=== PATIENT | female | born 1970 | race Caucasian/White ===

== ENCOUNTER → 2022-10-07 10:44 | Outpatient (CLI) | payer BC, SELFPAY ==
--- NOTE | 2022-10-07 10:53 | XR_ITS ---
FINAL REPORT CLINICAL HISTORY: major deformities and foot pain FINDINGS: Left foot Three views were obtained. There is no acute fracture or dislocation. There is marked Bonita deformity. There is lateral subluxation/dislocation of the 2nd and 3rd metatarsophalangeal joints. There is pes planus deformity. IMPRESSION: No acute process. Reviewed, Interpreted and Dictated by Akhil Huang MD Transcribed by Laureen Hobbs Authenticated and [facility]
--- NOTE | 2022-10-07 10:53 | XR_ITS ---
FINAL REPORT CLINICAL HISTORY: ankle pain FINDINGS: Left ankle Three views were obtained. There is no acute fracture or dislocation. The joint spaces appear normal. No soft tissue abnormality is identified. There is a small plantar spur. IMPRESSION: No acute process. Reviewed, Interpreted and Dictated by Akhil Huang MD Transcribed by Laureen Hobbs Authenticated and [facility]
--- NOTE | 2022-10-07 10:53 | XR_ITS ---
FINAL REPORT CLINICAL HISTORY: bilateral foot pain FINDINGS: Right foot Three views were obtained. There is no acute fracture or dislocation. The joint spaces appear normal. No soft tissue abnormality is identified. There is marked hallux valgus deformity. There is an accessory navicular. IMPRESSION: No acute process. Reviewed, Interpreted and Dictated by Akhil Huang MD Transcribed by Laureen Hobbs Authenticated and [facility]
--- NOTE | 2022-10-07 10:53 | XR_ITS ---
FINAL REPORT CLINICAL HISTORY: ankle pain FINDINGS: Right ankle Three views were obtained. There is no acute fracture or dislocation. The joint spaces appear normal. No soft tissue abnormality is identified. IMPRESSION: No acute process. Reviewed, Interpreted and Dictated by Akhil Huang MD Transcribed by Laureen Hobbs Authenticated and . [facility]
== END ==
PROVIDERS: PCP Nurse Practitioner Family; Visit Provider Nurse Practitioner Family
DX: M79.671 Pain in right foot (principal); M79.672 Pain in left foot; M25.571 Pain in right ankle and joints of right foot; M25.572 Pain in left ankle and joints of left foot
CPT/HCPCS: 73610; 73630

== ENCOUNTER 2023-04-03 09:20 | Outpatient (CLI) | payer BC, SELFPAY ==
--- NOTE | 2023-04-03 09:22 | US_ITS ---
FINAL REPORT CLINICAL HISTORY: Decreased Pedal Pulses COMPARISON: None FINDINGS: ANKLE-BRACHIAL PRESSURE INDICES Pressure indices are as follows: RIGHT LOWER EXTREMITY: Ankle-brachial pressure index: 1.0 Comments: Normal LEFT LOWER EXTREMITY: Ankle-brachial pressure index: 1.0 Comments: Normal IMPRESSION: No evidence of significant obstructive peripheral vascular disease of the lower extremities Reviewed, Interpreted and Dictated by Pee Lopez III, MD Transcribed by Marlene Wilhelm Authenticated and [facility]
== END 2023-04-03 23:59 ==
LOC: RT 09:22
PROVIDERS: PCP Nurse Practitioner Family; Visit Provider Podiatrist
DX: R09.89 Other specified symptoms and signs involving the circulatory and respiratory systems (principal)
CPT/HCPCS: 93923

== ENCOUNTER 2023-05-06 09:33 | Outpatient (CLI) | payer BC, SELFPAY ==
--- NOTE | 2023-05-06 09:33 | CT_ITS ---
FINAL REPORT TECHNIQUE: Thin section axial CT images with coronal and sagittal reformats were performed of the left foot. This study was performed with techniques to keep radiation doses as low as reasonably achievable (ALARA). Individualized dose reduction techniques using automated exposure control or adjustment of mA and/or kV according to the patient''s size were employed. CLINICAL HISTORY: Bunion and subchondral bone cysts COMPARISON: None FINDINGS: There are no fractures. There is a severe hallux valgus deformity. There is lateral dislocation of the second and third proximal phalanges at the metatarsophalangeal joints. There are second, third, and fourth hammertoes. There is moderate degenerative change of the midfoot, worst at the second tarsometatarsal joint with numerous subchondral cysts. IMPRESSION: Severe hallux valgus deformity. Lateral dislocation of the second and third proximal phalanges. Second, third, and fourth hammertoes. Moderate degenerative change of the midfoot. Reviewed, Interpreted and Dictated by Pee Lopez III, MD Transcribed by Marlene Wilhelm Authenticated and [facility]
== END 2023-05-06 23:59 ==
LOC: RAD 09:33
PROVIDERS: PCP Nurse Practitioner Family; Visit Provider Podiatrist
DX: M85.89 Other specified disorders of bone density and structure, multiple sites (principal); M85.672 Other cyst of bone, left ankle and foot
CPT/HCPCS: 73700

== ENCOUNTER 2023-06-03 09:27 | Outpatient (CLI) | payer BC, SELFPAY ==
--- NOTE | 2023-06-03 09:28 | XR_ITS ---
FINAL REPORT CLINICAL HISTORY: Bone Density Disorder COMPARISON: None FINDINGS: Using L1-4, the bone mineral density of the spine is 1.206 g/cm2, corresponding to T-score of 1.4 which is within normal limits. Using the left hip, the bone mineral density of the femoral neck is 0.882 g/cm2, corresponding to a T-score of 0.3 which is within normal limits. Using the right hip, the bone mineral density of the femoral neck is 0.868 g/cm2, corresponding to a T-score of 0.2 which is within normal limits. FRAX not reported because all T-scores at or above -1.0. NOTE: T-score: Standard deviation compared with peak bone mass of young adult mean. *Following the recommendations of the International Society of Bone densitometry, classification of hip BMD is based on the lower of two T-scores; total hip or femoral neck. IMPRESSION: Normal bone mineral density of the lumbar spine and hips. Reviewed, Interpreted and Dictated by Akhil Huang MD Transcribed by Marlene Wilhelm Authenticated and . [facility]
== END 2023-06-03 23:59 | disposition home or self-care (01) ==
LOC: RAD 09:28
PROVIDERS: PCP Nurse Practitioner Family; Visit Provider Podiatrist
DX: M85.89 Other specified disorders of bone density and structure, multiple sites (principal)
CPT/HCPCS: 77080

== ENCOUNTER 2023-06-23 11:00 | Outpatient (CLI) | payer BC, SELFPAY ==
--- NOTE | 2023-06-23 11:10 | XR_ITS ---
FINAL REPORT CLINICAL HISTORY: past nicotine use COMPARISON: None FINDINGS: Two views of the chest were obtained. The heart size and pulmonary vascularity are within normal limits. The mediastinum is normal. There is mild atelectasis or scarring in the left lung base. There is no pneumothorax. The bony thorax is intact. IMPRESSION: Left lung base atelectasis or scarring. Reviewed, Interpreted and Dictated by Pee Lopez III, MD Transcribed by Marlene Wilhelm Authenticated and [facility]
[2023-06-23 11:16] LABS: Basophils # 0.1 K/mm3 (0-0.2); Basophils % 1.1 % (0.1-2.0); Eosinophils # 0.3 K/mm3 (0.0-0.4); Eosinophils % 3.2 % (0.1-12.0); Hematocrit 47.1 % (37.0-47.0); Hemoglobin 15.2 g/dL (12.2-16.2); Lymphocytes # 2.4 K/mm3 (0.7-4.5); Lymphocytes % 25.5 % (10-50); Mean Corpuscular HGB Conc 32.3 g/dL (31.8-35.4); Mean Corpuscular Hemoglobin 29.5 pg (27.0-31.2); Mean Corpuscular Volume 91.4 fl (81-99); Mean Platelet Volume 10.1 fl (7.4-10.4); Monocytes # 0.4 K/mm3 (0.1-1.0); Monocytes % 4.6 % (1.7-9.3); Neutrophils # 6.1 K/mm3 (1.8-7.8); Neutrophils % 65.6 % (37.0-80.0); Platelet Count 224 K/mm3 (142-424); Red Blood Count 5.15 M/mm3 (4.20-5.40); Red Cell Distribution Width 16.2 % (11.5-17.5); White Blood Count 9.4 K/mm3 (4.8-10.8)
[2023-06-23 11:37] LABS: Alanine Aminotransferase 27 U/L (12-78); Albumin Level 4.2 g/dl (3.5-5.0); Albumin/Globulin Ratio 1.6 (1.1-1.8); Alkaline Phosphatase 58 U/L (38-126); Aspartate Amino Transferase 31 U/L (14-36); Bilirubin,Total 0.8 mg/dl (0.2-1.3); Blood Urea Nitrogen 13 mg/dl (7-17); Calcium 9.7 mg/dl (8.4-10.2); Carbon Dioxide 29 mmol/L (22.0-30.0); Chloride 100 mmol/L (98-107); Estimated Glomerular Filt Rate 130 ml/min (>60); GFR (African American) 157 ML/MIN (>60); Globulin 2.7 g/dL (1.3-3.2); Glucose 101 mg/dl (74-100); Sodium 136 mmol/L (136-145); Total Protein,Serum 6.9 g/dl (6.3-8.2); Uric Acid 4.9 mg/dl (2.5-6.2)
--- NOTE | 2023-06-23 11:53 | ECG_ITS ---
APPROVED REPORT Exam: Resting ECG HR:77 bpm ECG Measurements Heart Rate 77 AXES AR 144 P 66 QRSd 86 QRS 70 QT 369 T 46 QTc 400 Conclusion SINUS RHYTHM LOW QRS VOLTAGE IN PRECORDIAL LEADS [QRS DEFLECTION < 1.0 mV IN CHEST LEADS] BORDERLINE ECG UNCONFIRMED REPORT Electronically signed by : Clayton Gonzales MD 06/23/2023 21:35:27
[2023-06-23 15:47] LABS: Erythrocyte Sedimentation Rate 12 mm/hr (0-30)
[2023-06-24 09:09] LABS: RA Latex Turbid. <10.0 IU/mL (<14.0)
[2023-06-25 15:54] LABS: Antinuclear Antibodies, IFA Positive
[2023-06-29 21:08] LABS: 1,25 Dihydroxy Vitamin D 43 pg/mL (.); 1,25-Dihydroxy, Vitamin D-2 <10 pg/mL (.); 1,25-Dihydroxy, Vitamin D-3 40 pg/mL (.)
== END 2023-06-23 23:59 | disposition home or self-care (01) ==
LOC: LAB 11:01
PROVIDERS: PCP Nurse Practitioner Family; Visit Provider Podiatrist
DX: Z01.818 Encounter for other preprocedural examination (principal); R60.9 Edema, unspecified
CPT/HCPCS: 36415; 71046; 80053; 82652; 84550; 85025; 85651; 86038; 86431; 93005

== ENCOUNTER 2023-07-15 07:14 | Day surgery (SDC) | payer BC, SELFPAY ==
[2023-07-09 09:45] VITALS: BMI 33.6
[2023-07-15] VITALS (11 sets, daily range): BP systolic 105–163; BP diastolic 63–96; PULSE 90–119; RESP 16–20; TEMP 36.2–43; O2SAT 92–96; BMI 33.6
[2023-07-15] MEDS: LACTATED RINGERS 1000ML 1,000 ML 100 ML IV (07:44)
--- NOTE | 2023-07-15 07:59 | EXP.ANES.CKL ---
[facility] Disclaimer: The information contained in this section may have been updated after the patient was seen, as this information can be updated by other users. Medical History Hypothyroid Bilateral ankle pain Bilateral foot pain Surgical History History of gastric bypass Family History Other Family history of arthritis Family history of cancer Social History Smoking Status: Never smoker alcohol intake: current substance use type: denies use current occupational status: employed Travel in the last 8 weeks: None [facility] Anesthesia Checklist Patient Identification Patient Identification: Arm Band Structural Data Admitted From: Home Planned Operative Procedure/s: Left Lapidus, Foot Reconstruction Consent for Planned Operative Procedure(s) Verified: Yes Verified Documents: Surgical Consent and History and Physical NPO Status Verified Time NPO: 00:00 Additional verifications Anesthesia Reactions: No Hx Blood Transfusions: No Blood Transfusion Reaction: No Airway Assessment Mallampati Score:: Class II C-Spine Mobility Assessed: Yes TMJ Mobility Assessed: Yes Dentition: Dentures-good fit (removed) Neurological Assessment Level of Consciousness: Awake, Alert and Appropriate Anesthesia Plan Anesthesia Risk discussed: Yes Anesthesia Plan: Verified ASA Class: II Anesthesia Type: General w/block (Left Popliteal/Adductor Canal Nerve Block. Risks/benefits explained. Pt verbalized understanding)
[2023-07-15 09:34] LABS: HCG Qualitative, Serum Negative (Negative)
[2023-07-15] MEDS: CEFAZOLIN SODIUM 2 GM in 0.9 % SODIUM CHLORIDE 100 ML IV (09:50)
--- NOTE | 2023-07-15 10:43 | SUR.OPER ---
attempted to update family member that the surgery had begun. family was not found in waiting area and did not answer the phone call made to update them
--- NOTE | 2023-07-15 11:30 | SUR.OPER ---
patients family member has been updated on status of surgery via phone call
--- NOTE | 2023-07-15 13:12 | SUR.OPER ---
1310- family updated at this time, family member was made aware that surgery is going as planned per
--- NOTE | 2023-07-15 14:00 | XR_ITS ---
PROCEDURE INFORMATION: Exam: XR Left Foot Exam date and time: 07/15/2023 4:45 PM Age: 52 years old Clinical indication: Device placement; Joint fixation hardware; Additional info: Post op forefoot recon TECHNIQUE: Imaging protocol: Radiologic exam of the left foot. Views: 3 or more views. COMPARISON: SD XR FOOT LT 2V 07/15/2023 4:09 PM and 10/07/2022 FINDINGS: Bones/joints: Fusion of the midfoot with plate and screw fixation involving the 1st through 3rd tarsometatarsal bony structures. Osteotomy with sideplate fixation of the midportion of the 1st metatarsal. Bunionectomy. Osteotomies of the distal 2nd through 5th metatarsals with K-wire fixation. Soft tissues: Normal. IMPRESSION: Postop left foot.
--- NOTE | 2023-07-15 14:14 | SUR.OPER ---
1415- family member updated at this time on progress of surgery per
--- NOTE | 2023-07-15 15:14 | SUR.OPER ---
updated at 1513. stated thanks for the update.
--- NOTE | 2023-07-15 16:09 | XR_ITS ---
FINAL REPORT CLINICAL HISTORY: LAPIDUS BUNIONECTOMY/HAMMERTOE REPAIR FT:4.45MIN 5.51mGy FINDINGS: FLUORO TIME PROCEDURE: Fluoroscopy in the operating room. FINDINGS: Fluoroscopy time was provided by the radiology department for the clinical service. 3 films were obtained. An overlying cast obscures some of the details. There is fusion hardware bridging the first, second, and third tarsometatarsal joints. K wires are seen in all 5 digital rays. Fluoroscopy exposure time: 4.45 minutes DAP: 5.51 mGy IMPRESSION: See operative report Reviewed, Interpreted and Dictated by Akhil Huang MD Transcribed by Omaira Lorenzo Authenticated and [facility][1]
--- NOTE | 2023-07-15 16:38 | P.PNANES_ITS ---
[facility] Anesthesia Record Part I Anesthesia Record I Intake, IV Amount: 1,800 Hydration: Adequate Estimated blood loss (mL): 200 Urine output (mL): 1,200 Blood Products used (#): none Blood Pressure: 142/80 SaO2: 92 Pulse Rate: 119 Airway Patency: Patent Respiratory Rate: 16 Temperature: 97.9 F Patient is:: Awake (Talking) and Stable Stable to PACU at:: 19:37
--- NOTE | 2023-07-15 16:47 | P.OP_ITS ---
Date of procedure: 07/15/23 Pre-op Diagnosis:: Left foot metatarsus adductus Left foot arthritis Left hallux valgus Pes planus Hammertoes 2-5 Cross over toe deformity, 2-3rd MPJ dislocation Angular toe deformity Metatarsalgia Left foot (ganglion) cyst Post-op Diagnosis:: Same + intercuneiform instability Procedure performed:: Left lapidus bunionectomy (78243) 2-3rd tarsometatarsal joint arthrodesis with osteotomy/flatfoot correction (9 3995) ORIF cuneiform 1st MTPJ arthrodesis (57366) Open treatment of MPJ dislocation (34249) 2-5th MPJ capsulotomy (77389) Autograft bone harvest () Hammertoe repair, digits 2-4 (56240) Reconstruction of angular toe deformity, digit 5 (69112) Partial (tucker) metatarsal head resection 2-5 (32326) Partial excision phalanx, digit 5 (55165) Z lengthening extensor tendon 1-3 Ganglion cyst excision Surgeon:: Sadia Nieto DPM [employer]:: Lila Ferro Anesthesia: GETA and regional (Left pop nerve block) Estimated blood loss (mL): 30 Clinical Note:: 52F who presents with painful b/l metatarsus adductus, bunion and hammertoe defo rmity. Patient has had recent x-rays, ABIs, CT, DEXA scan, and labs. She has failed conservative care: modification of shoe gear, modification of activity, RICE protocol, stretching, bunion sleeve/splint, toe spacers/sleeves/caps, pads, and NSAIDs. The patient has been instructed on the planned procedure, all risk versus benefits of the procedure to include bleeding, infection, nerve and blood vessel damage, need for further surgery, delay in healing of soft tissue or bone, failure of bones to heal, non-union, mal-union, prolonged pain and recovery, prolonged swelling, CRPS/RSD, DVT/PE and anesthetic complications including . Patient is a former smoker with no history of DVT/PE. Discussed aspirin 81 mg postop. Discussed increased risk of infection, wound dehiscence due to extent of surgery, multiple incisions and former smoker history. No guarantees were given. All questions fully answered. The patient verbalized understanding and consent obtained. Operative findings:: Significant left foot deformity. Left hallux valgus with hypermobile first ray. Arthritic degenerative changes with dorsal exostosis/spurring noted to the f irst second and third tarsometatarsal joints. There was no viable medial capsular tissue noted to the 1-3rd MPJ. The tissue was synovitic. Around the joint capsules the tissue appeared rubbery. The skin itself was very fragile and upon reduction of the deformity the skin was very easily bruised and torn. Crossover toe deformities. Windswept deformities to the digits 1 through 5, laterally. The second and third digits were dorsally and laterally dislocated at the level of the MPJ. The first metatarsal head had more than 60% arthritic damage to the joint. The second metatarsal head had over 80% cartilage damage. There were arthritic changes noted to the remaining metatarsal heads. Metatarsal heads were removed and a tucker metatarsal head fashion similar to a rheumatoid arthritis type case in order to relocate the digits. Due to the significant soft tissue contracture in order to relocate and maintain reduced position of the digits, extensor tendon lengthenings and the pattern met head resection had to be performed. No signs of infection. The bone quality was poor due to the arthritic changes and extensive subchondral bone cysts throughout the foot. Modifier: This case took 2.5 hours longer than normal due to the significant deformity. The metatarsus adductus, bunion, arthritic changes, toe dislocations added to the complexity of the case. The patient's soft tissue was synovitic and rubbery almost the consistency is like a autoimmune disease. This made the skin very fragile and easy to tear. Bruising with minimal tissue handling. So extra care was utilized in the soft tissue dissection and closure. There was redundant skin medially and tight skin laterally. Kirk guard was used at the areas of highest tension to help prevent wound dehiscence due to reduction of the significant deformity especially the second and third toes. If the arthritic degenerative changes in the subchondral bone cyst warranted bone grafting with both the calcaneal autograft and allograft to fill the cystic defects. Postop concern: Wound healing, wound dehiscence, skin necrosis and gangrene discussed with patient/. Operative note:: On this date and time, the patient was deemed an appropriate surgical candidate. With informed consent signed, the patient was taken to the operating theater after anesthesia did a regional nerve block. The patient was positioned supine. General anesthesia was induced. Tourniquet was applied to the mid calf. The left lower extremity was prepped and draped in normal sterile fashion. IV Ancef infused. Left calcaneal autograft bone harvest: Attention was directed to the lateral calcaneus where a an incision was mapped out. Dissection was carried down full- thickness to the level of the bone. Utilizing an autograft bone harvester drill was inserted into the calcaneus and drill. Approximately 10 cc of calcaneus cancellous bone was obtained. Wound was flushed with saline. Nylon used to close the skin. Left Lapidus bunionectomy: Tourniquet was inflated 225 mmHg. Attention directed to the dorsal medial foot where an incision was mapped out over the first metatarsal cuneiform joint. Dissection carried down full-thickness down to the level of the bone with care taken to maintain surgical hemostasis and preserve neurovascular structures. There was arthritic changes noted to the dorsal lateral aspect of the first tarsometatarsal (TMT) joint. First TMT release performed. Left multiple midfoot athrodesis, excision of ganglion cyst: Utilizing intraoperative fluoroscopy, separate incision was made over the third TMTJ. Care taken to ensure an adequate skin bridge of 4 cm between the dorsal medial and dorsal lateral incisions. A longitudinal incision was made over the 3rd TMT joint. Careful dissection through skin subcutaneous tissue and retinaculum, care taken to leave ligamentous attachment between the 2nd and 3rd metatarsals. The 2nd and 3rd TMT joints were located and exposed. A 1 cm round ganglion cyst was noted at the dorsal aspect of the second TMT. It was resected and sent to pathology as a specimen. Complete release of the interval between the 3rd and 4th metatarsals was performed with a TriToma triple Edge release instrument and osteotome. The Adductoplasty planer system was utilized and inserted into the joints. Utilizing a saw the joints were planed. Next the cut guide was inserted into the joints. Intraoperative fluoroscopy was used to confirm position of the cut guides. Sagittal saw used to make continuous metatarsal and cuneiform cuts across both the 2nd and 3rd TMT joints. The bone slices were removed. All articular cartilage had been removed. This was confirmed with intraoperative fluoroscopy. Due to the significant met adductus deformity, a 9 degree cut guide was then utilized to resect more bone off the metatarsal in order to reduce the deformity. Joints were flushed with saline. Next drill bit was used to fenestrate through the subchondral bone plates on both the joints. The autograft from the calcaneus was inserted to the fusion sites. TMT joints were manually reduced and a compressor was applied over the joints holding the reduction. Again reduction confirmed under intraoperative x-ray. Upon insertion of the temporary fixation, the third metatarsal bone fractured due to the degenerative changes and bone cysts. Bridge plate technique was then utilized to span the fracture third metatarsal medial base. A Lapiplasty lesser TMT fixation speed plate was then applied on the dorsal 3rd TMT joint. Allograft was packed into the fracture and joint sites. It was inserted and fixated in standard technique. Deformity further reduced and plate was then inserted on the 2nd TMT joint. Fluoroscopy used to check position of fixation and it was noted to be adequate with reduction of the deformity. Attention was then directed back to the first tarsometatarsal joint. Next a pin was inserted dorsal medial parallel to the first TMT joint and the bunion deformity was reduced. Next in standard technique the Lapiplasty 3in1 guide and positioner was inserted into the TMT joint. Intraoperative fluoroscopy was utilized to confirm position. The positioner was tightened and the deformity was reduced. The sesamoids were realigned underneath the first metatarsal head. At this point temporary fixation was inserted. Cut guide applied and bone cuts were made. A rongeur was used to resect excess dorsal spur. Next the incision was flushed with copious amounts of normal sterile saline. The joint was then distracted and the joint surfaces were fenestrated with a 2 mm drill fenestrating subchondral bone surfaces. The joint was then compressed and provisional fixation was inserted. The autograft from the calcaneus was inserted to the fusion site. Quad speed plates then applied in standard technique. AP and lateral fluoroscopy views used to confirm position of the fixation. Some reduction of the deformity was noted with stable fixation. A splay test was performed and there was some instability noted at the level of the intercuneiform's. Left ORIF cuneiform: Due to instability at the level of the cuneiforms the m edial and medial cuneiforms were reduced and a cannulated screw was inserted in standard technique from medial to lateral across the joints. Intraoperative fluoroscopy was used to check position and there was some reduction of the instability at this level. Wound flushed. Left 1st MTPJ arthrodesis: New incision was made over the 1st MPJ extending to the proximal phalanx. Full-thickness dissection. There was significant contracture of the extensor tendons so a Z-lengthening was performed. Due to the significant bunion deformity with degenerative changes of the metatarsal head, decision was made to perform the first MPJ fusion. Joint was prepared with reamers in standard technique removing all damaged cartilage. Deformity was reduced and confirmed under intraoperative fluoroscopy. Next 2 dual Spee plates were inserted in standard technique without complication. The K wire used to reduce the joint was retained for extra stability. All fixation was deemed to be stable without joint impingement. Wound flushed. Deep and subcutaneous tissue closed with Vicryl. Skin was reapproximated with nylon. Left tucker met head resection, MPJ capsulotomy: Due to the significant deformity of the toes, toes were unable to be fully relocated without them dislocating again. Incision was made between the second and third and a separate incision between the fourth and fifth metatarsal heads. Full-thickness dissection. Extensor tendon lengthening was performed. MPJ capsule releases performed 2-5. Saw blade used to resect metatarsal heads without complication. Met head sent for pathology specimen. No signs of infection. The digits were then able to be reduced at the level of the MPJ. Hammertoe repair 2-5, correction of crossover second toe, correction of angular toe deformity: Linear incisions were made over the 2-4th PIPJ's. A wedge incision was made of the fifth PIPJ in order to derotate the fifth toe deformity. Dissection carried down to the level of the extensor tendons which were transected at the level of the PIPJ. Head of the proximal phalanx 2-5 were resected. Base of the middle phalanx 2-4 resected. Wound flushed with saline. Toe deformities were reduced. A peek hammertoe implant size small was inserted to the second digit, K wire left intact. The remaining toe bones were irregular with soft cystic changes. Due to the size of the bone implant would not fit, so decision made to use smooth K wires on remaining digits 3-5. Wounds were flushed. Vicryl was used to reapproximate deep and subcutaneous tissue. Graft inserted prior to skin closure. Due to excessive tension on the lateral skin, Kirk guard was used to reduce chance of wound dehiscence. Application of amniotic graft: Given the patient's comorbidities and risk for wound and skin healing complications secondary to reduction of deformity, decision was made to use amniotic tissue in the incisions. It was inserted without complication. Application of posterior splint: Tourniquet had been deflated at 120 minutes and immediate hyperemic response was noted to the digits. It was left down for over 60 minutes and then reinflated for another 2 hours. Immediate hyperemic response was noted once the tourniquet was deflated. Skin was cleansed. Xeroform applied to the incisions and around the K wires. A dry sterile dressing was then applied along with a below-knee posterior splint. Patient was awoken from anesthesia and transferred to recovery with vital signs stable. Patient appeared to tolerate procedure and anesthesia well without complication. Materials: Treace Quad Speed plate x2, Dual Speed plate x2, SK14 4 hole plate x2, 2.7mm locking x8, 3.5mm cannulated screw x1, small 2.8mm HT peek implant x1 0.062 K wire x1, 1.1mm K wires x2, 0.045 smooth K wire x2, [place] 4x3cm amniotic graft, [employer] 10cc, Kirk guard (suturegard) x2 Plan: Maintain dressing clean dry and intact to left foot. NWB to LLE in splint with DME. Has knee scooter. Take prescriptions as directed. Polar pack behind the knee. Postop x-rays. Follow-up outpt in 1 week. Tourniquet time (min): 240 Condition: stable Disposition: same day Specimens:: Left foot cyst Left metatarsal heads 2-5 Complications:: None
--- NOTE | 2023-07-15 17:00 | PC.NURSE ---
Dr. Nieto at bedside speaking with pt and reinforcing discharge instructions including non wt bearing, leaving dressing c/d/i, and polar pack. Also instructed on use of pain med. Pt verbalized understanding to all.
--- NOTE | 2023-07-15 17:02 | PC.NURSE ---
Pt unable to move L foot. No feeling. Nerve block is functioning very well. Denies any pain
--- NOTE | 2023-07-15 17:35 | SUR.PHASEII ---
Pt very pleased with surgery and very complimentary of all staff and how the day went. pt having no pain, no feeling in L foot D/T nerve block.
[2023-07-16 06:51] LABS: Microscopic,Cath URINE MICROSCOPIC (MICROSCOPIC)
[2023-07-16 07:02] LABS: Appearance,Urine/Cath CLEAR (Clear); Bilirubin,Cath Negative (Negative); Blood, Urine/Cath Negative (Negative); Glucose,Urine/Cath (UA) Negative (Negative); Ketones,Urine/Cath Negative (Negative); Leukocyte Esterase,Cath Negative (Negative); Nitrate,Cath Negative (Negative); Protein,Urine/Cath Negative (Negative); Specific Gravity, Urine/Cath <= 1.005 (1.005-1.030); Urobilinogen,Cath 0.2 EU/dl (0.2)
[2023-07-16 07:04] LABS: Color,Urine/Cath Straw (Yellow)
[2023-07-16 09:01] LABS: Bacteria,Urine/Cath TRACE /lpf; WBC,Urine/Cath Occasional #/hpf (0-3)
--- NOTE | 2023-07-16 09:16 | EXP.ANES.II ---
[facility] Anesthesia Record Part II Anesthesia Record Part II Discharge Time: 17:02 Destination: Surgical Day Care (OP Surgery) PACU nurse assessment reviewed?: Yes Patient Condition:: Good Anesthesia Complications:: None Swallowing reflex intact?: Yes Airway Patency: Patent Cyanosis?: No Blood Pressure: 115/63 SaO2: 95 Respiratory Rate: 18 Pulse Rate: 109 Temperature: 98.5 F Mental Status: Alert & Oriented Pain level:: 0 Nausea and/or vomitting:: None Intake, IV Amount: 1,800 Hydration: Adequate
[2023-07-16 09:18] VITALS: BP 115/63; PULSE 109; RESP 18; TEMP 36.9; O2SAT 95
== END 2023-07-15 17:40 | disposition home or self-care (01) ==
PROVIDERS: PCP Nurse Practitioner Family; Visit Provider Podiatrist
PROC: (CPT 28297; principal; 2023-07-15 09:00)
DX: M20.12 Hallux valgus (acquired), left foot (principal); M20.5X2 Other deformities of toe(s) (acquired), left foot; M21.42 Flat foot [pes planus] (acquired), left foot; M20.42 Other hammer toe(s) (acquired), left foot; M77.42 Metatarsalgia, left foot; M79.672 Pain in left foot; M24.478 Recurrent dislocation, left toe(s); Z79.85 Long-term (current) use of injectable non-insulin antidiabetic drugs; Z79.899 Other long term (current) drug therapy
CPT/HCPCS: 28297; 28735; 20900; 28285 ×4; 28645; 73620; 73630; 76000; 81001; 84703; 96374; C1713; C1776; J0690; J2405; J7120; Q4211

== ENCOUNTER 2023-07-30 16:09 | Outpatient (CLI) | payer BC, SELFPAY | END 2023-07-30 23:59 | disposition home or self-care (01) | LOC: LAB.DROPOF 16:09 | PROVIDERS: PCP Podiatrist; Visit Provider Podiatrist | DX: S90.426A Blister (nonthermal), unspecified lesser toe(s), initial encounter (principal); S90.425A Blister (nonthermal), left lesser toe(s), initial encounter; A49.9 Bacterial infection, unspecified | CPT/HCPCS: 87070; 87077; 87205 ==

== ENCOUNTER 2023-08-24 08:26 | Outpatient (CLI) | payer BC, SELFPAY ==
--- NOTE | 2023-08-24 08:33 | XR_ITS ---
FINAL REPORT CLINICAL HISTORY: Poetoperative healing COMPARISON: 07/15/2023 FINDINGS: LEFT FOOT Three views of the left foot demonstrate postoperative changes of the first, second, and third tarsometatarsal joints with multiple screw plates and screws. There is fusion of the first metatarsal phalangeal joint and resection of the heads of the second through fifth metatarsals. Wires are noted in the first through fifth digits. The bony alignment is stable. A plantar calcaneal spur is noted. The soft tissues are unremarkable. IMPRESSION: Postoperative changes as above. Reviewed, Interpreted and Dictated by Pee Lopez III, MD Transcribed by Marlene Wilhelm Authenticated and [facility]
--- NOTE | 2023-08-24 09:40 | ECG_ITS ---
APPROVED REPORT Exam: Resting ECG HR:73 bpm ECG Measurements Heart Rate 73 AXES DC 152 P 61 QRSd 88 QRS 60 QT 377 T 44 QTc 403 Conclusion SINUS RHYTHM LOW QRS VOLTAGE IN PRECORDIAL LEADS [QRS DEFLECTION < 1.0 mV IN CHEST LEADS] BORDERLINE ECG UNCONFIRMED REPORT Electronically signed by : Clayton Gonzales MD 08/26/2023 08:34:04
[2023-08-24 10:01] LABS: Basophils # 0.1 K/mm3 (0-0.2); Basophils % 1.2 % (0.1-2.0); Eosinophils # 0.4 K/mm3 (0.0-0.4); Eosinophils % 5.6 % (0.1-12.0); Hematocrit 44.3 % (37.0-47.0); Hemoglobin 14.6 g/dL (12.2-16.2); Lymphocytes # 2.1 K/mm3 (0.7-4.5); Lymphocytes % 27.4 % (10-50); Mean Corpuscular Hemoglobin 29.5 pg (27.0-31.2); Mean Corpuscular Volume 89.3 fl (81-99); Mean Platelet Volume 10.8 fl (7.4-10.4); Monocytes # 0.4 K/mm3 (0.1-1.0); Monocytes % 4.6 % (1.7-9.3); Neutrophils # 4.8 K/mm3 (1.8-7.8); Neutrophils % 61.1 % (37.0-80.0); Platelet Count 204 K/mm3 (142-424); Red Blood Count 4.96 M/mm3 (4.20-5.40); Red Cell Distribution Width 14.9 % (11.5-17.5); White Blood Count 7.8 K/mm3 (4.8-10.8)
[2023-08-24 10:55] LABS: Alanine Aminotransferase 18 U/L (12-78); Albumin Level 4.1 g/dl (3.5-5.0); Albumin/Globulin Ratio 1.5 (1.1-1.8); Alkaline Phosphatase 75 U/L (38-126); Anion Gap 7.8 mEq/L (5-15); Aspartate Amino Transferase 22 U/L (14-36); Bilirubin,Total 0.7 mg/dl (0.2-1.3); Blood Urea Nitrogen 14 mg/dl (7-17); Calcium 9.7 mg/dl (8.4-10.2); Carbon Dioxide 30 mmol/L (22.0-30.0); Chloride 104 mmol/L (98-107); Estimated Glomerular Filt Rate 130 ml/min (>60); GFR (African American) 157 ML/MIN (>60); Globulin 2.8 g/dL (1.3-3.2); Glucose 106 mg/dl (74-100); Potassium 3.8 mmoL/L (3.5-5.1); Sodium 138 mmol/L (136-145); Total Protein,Serum 6.9 g/dl (6.3-8.2)
[2023-08-24 13:10] LABS: Erythrocyte Sedimentation Rate 62 mm/hr (0-30)
[2023-08-24 14:10] LABS: Hemoglobin A1C 5.9 % (4.0-6.0)
[2023-08-30 20:08] LABS: 1,25 Dihydroxy Vitamin D 20 pg/mL (.); 1,25-Dihydroxy, Vitamin D-2 12 pg/mL (.); 1,25-Dihydroxy, Vitamin D-3 <10 pg/mL (.)
== END 2023-08-24 23:59 | disposition home or self-care (01) ==
PROVIDERS: PCP Nurse Practitioner Family; Visit Provider Podiatrist
DX: Z01.818 Encounter for other preprocedural examination (principal); M79.672 Pain in left foot; R60.9 Edema, unspecified; T81.31XA Disruption of external operation (surgical) wound, not elsewhere classified, initial encounter; I96 Gangrene, not elsewhere classified; E66.9 Obesity, unspecified; Z68.33 Body mass index [BMI] 33.0-33.9, adult
CPT/HCPCS: 36415; 73630; 80053; 82652; 83036; 85025; 85651; 86140; 93005

== ENCOUNTER 2023-08-27 10:23 | Day surgery (SDC) | payer BC, SELFPAY ==
[2023-08-25 14:12] VITALS: BMI 34.4
[2023-08-27] VITALS (9 sets, daily range): BP systolic 116–142; BP diastolic 75–104; PULSE 79–91; RESP 12–20; TEMP 36.4–36.5; O2SAT 90–98; BMI 34.4
[2023-08-27] MEDS: LACTATED RINGERS 1000ML 1,000 ML 25 ML IV (11:10)
[2023-08-27 11:16] LABS: HCG Qualitative, Serum Negative (Negative)
--- NOTE | 2023-08-27 11:29 | P.PNANES_ITS ---
[facility] Disclaimer: The information contained in this section may have been updated after the patient was seen, as this information can be updated by other users. Medical History Hypothyroid Bilateral ankle pain Bilateral foot pain Surgical History History of gastric bypass Family History Other Family history of arthritis Family history of cancer Social History Smoking Status: Never smoker alcohol intake: current substance use type: denies use current occupational status: employed Travel in the last 8 weeks: None [facility] Anesthesia Checklist Patient Identification Patient Identification: Arm Band and Family Structural Data Admitted From: Home Planned Operative Procedure/s: Left second toe amputation. Wound debridement with delayed primary closure Consent for Planned Operative Procedure(s) Verified: Yes Verified Documents: Surgical Consent NPO Status Verified Time NPO: 00:00 Additional verifications Patient : No Anesthesia Reactions: No Hx Blood Transfusions: No Blood Transfusion Reaction: No Cephalosporin Allergy: No Previous Colonoscopy: Yes Airway Assessment Mallampati Score:: Class II C-Spine Mobility Assessed: Yes TMJ Mobility Assessed: Yes Dentition: Edentulous Neurological Assessment Level of Consciousness: Awake, Alert, Appropriate and Follows Commands Hx Seizures: No Numbness or tingling in extremities: No Anesthesia Plan Anesthesia Risk discussed: Yes ASA Class: II Anesthesia Type: General w/block
--- NOTE | 2023-08-27 11:42 | P.PNANES_ITS ---
[facility] Disclaimer: The information contained in this section may have been updated after the patient was seen, as this information can be updated by other users. Medical History Hypothyroid Bilateral ankle pain Bilateral foot pain Surgical History History of gastric bypass Family History Other Family history of arthritis Family history of cancer Social History Smoking Status: Never smoker alcohol intake: current substance use type: denies use current occupational status: employed Travel in the last 8 weeks: None [facility] Anesthesia Checklist Patient Identification Patient Identification: Arm Band and Family Structural Data Admitted From: Home Planned Operative Procedure/s: Second Toe Amputation wound debriedment with primary closure. Consent for Planned Operative Procedure(s) Verified: Yes Verified Documents: Surgical Consent and History and Physical NPO Status Verified Time NPO: 00:00 Additional verifications Patient : No Anesthesia Reactions: No Hx Blood Transfusions: No Blood Transfusion Reaction: No Cephalosporin Allergy: No Previous Colonoscopy: No Airway Assessment Mallampati Score:: Class II C-Spine Mobility Assessed: Yes TMJ Mobility Assessed: Yes Dentition: Edentulous Neurological Assessment Level of Consciousness: Awake, Alert, Appropriate and Follows Commands Hx Seizures: No Numbness or tingling in extremities: No Anesthesia Plan Anesthesia Risk discussed: Yes ASA Class: II Anesthesia Type: General
[2023-08-27] MEDS: VANCOMYCIN HCL 1,000 MG in 0.9 % SODIUM CHLORIDE 250 ML 125 MG IV (12:45)
--- NOTE | 2023-08-27 12:49 | XR_ITS ---
FINAL REPORT CLINICAL HISTORY: Post op 2nd toe amp COMPARISON: 08/24/2023 FINDINGS: Left foot Three views were obtained. Postoperative changes are again identified of the forefoot with screw plates and multiple screws. The wires have been removed from the 1st to 5th digits. There has been interval resection of the 2nd digit. There is pes planus deformity. IMPRESSION: Postsurgical changes as above. Reviewed, Interpreted and Dictated by Pee Lopez III, MD Transcribed by Laureen Hobbs Authenticated and . [facility]
[2023-08-27] MEDS: BUPIVACAINE 0.5% 10ML VIAL 50 MG ×2 (13:07)
[2023-08-27] MEDS: GENTAMICIN 80 MG/2 ML VIAL (13:07)
[2023-08-27] MEDS: SODIUM CHLORIDE IRRIG SOLUTION 3,000 ML 25 ML IR (13:07)
--- NOTE | 2023-08-27 14:29 | P.OP_ITS ---
Date of procedure: 08/27/23 Pre-op Diagnosis:: Left 2nd toe gangrene Left foot wound dehiscence Left foot open wound Retained K wires Post-op Diagnosis:: Same Procedure performed:: Left 2nd toe amputation Left foot hardware removal (2nd toe implant, K wires x5) Wound debridement x3 Adjacent soft tissue rearrangement/derotational skin flap Delayed primary closure Surgeon:: Sadia Nieto DPM [employer] TECHNICIAN:: Francis Mcknight Anesthesia: GETA and local (20cc 0.5% marcaine plain) Estimated blood loss (mL): 20 Clinical Note:: Patient is a 52 female who underwent left foot reconstruction 07/15/2023. Patient subsequently developed a gangrenous left distal second toe with wound dehiscence. Conservative care has included weekly office visits with debridement, Nitro-Bid to the left second toe, nitro patches, oral antibiotics. Infection has resolved. Discussed the distal toe gangrene is secondary to correction of deformity and overstretching the small blood vessels to the digits. We discussed conservative versus surgical treatment options. Conservative treatment options include local wound care, oral and IV antibiotics, change in shoe wear, taping/padding, and off-loading. We discussed surgical intervention for amputation of the left second toe. Patient understands that there is a chance that the toes can migrate to fill the gap or the foot may change shape after surgery. Patient also understands that they could have wound healing complications including delayed healing and infection. We discussed that if the wound does not heal, it is possible that they may need a more proximal amputation and could result in further loss of digits, loss of partial foot or l oss of leg. We discussed the risks and benefits in great detail. Other surgical risks include: prolonged pain and swelling, further infection requiring oral or IV antibiotics, delay in healing of soft tissue or bone, nerve or blood vessel damage, CRPS/RSD, DVT/PE, anesthesia complications, and even . All questions answered. Patient verbalized understanding. Consent obtained. Operative findings:: Left 2nd toe gangrene stable. Some bleeding noted at 2nd PIPJ with wound dehiscence extending to 2nd and 3rd MTPJ. Left second toe amputated at the level of the PIPJ. The hardware used for PIPJ fusion was exposed. There was not enough soft tissue to cover the remaining wound where the gangrene had been amputated distally. Due to this the decision was made to take the remaining proximal phalanx including the implant. Second toe and implant were sent as specimens. Several scabs with intact eschar and wounds noted to the left dorsal medial foot incision and dorsal lateral midfoot incision. All wounds were sharply debrided full thickness thru skin into subq. Fibrotic scar tissue noted from prior incisions. No new drainage or SOI noted. Post debridement: Left proximal 3rd toe-MTPJ: 100% granular, 1.3 x 0.4 x 0.2cm. Left dorsal medial incision: 100% granular, 2.5 x 0.6 x 0.2m. Left dorsal lateral midfoot: 100% granular, 1.7 x 0.6 x 0.2cm. The left dorsal medial and dorsal lateral wounds were then able to be reapproximated and delayed primary closure was performed. The third MTPJ wound was unable to be reapproximated so a derotational skin flap was performed using some of the tissue from the amputation that was performed on the second toe rotating the skin plantar medial to dorsal lateral in order to cover the third toe wound. Some bleeding noted. No open wounds remaining. No deep signs of infection noted. Modifier: this case took 30 mins longer than normal due to previous surgery, fibrotic scar tissue and wound defects necessitating an adjacent soft tissue rearrangement/derotational skin flap. Operative note:: On this date and time patient was deemed an appropriate surgical candidate. With informed consent signed, the patient was taken to the local procedure operating theater room. The patient was positioned supine. General anesthesia was induced. Left mid calf tourniquet used. Pre-op left foot block given with 10 cc 0.5% marcaine plain. 1g IV Vanco infused. Left lower extremity was prepped and draped in normal sterile fashion. K wire removal: K wires noted to the tips of all the digits were removed without complication. Foot was reprepped. Left 2nd toe amputation: A racquetball style incision was mapped out around the PIPJ. Utilizing a 15 blade dissection was carried down sharply to the level of the bone around the middle phalanx which was disarticulated from the proximal phalanx. Due to the prior procedure of PIPJ fusion with peek implant, the joint was amputated at the level of the fusion site. Bone and implant sent as specimen. There is not enough soft tissue to close over the remaining bone so the rest of the proximal phalanx was also resected. Portion of it amputated toe bone was sent for bone culture and the other part was sent for bone biopsy for pathology. Attention was then directed to the second metatarsal head. The head was hard and intact, with no obvious discoloration or cortical erosions noted. Next gentamicin irrigation was used to flush the wound. The wound was reexplored and no further signs of infection noted. Bleeding controlled. Left wound debridement x3: Tourniquet inflated at 225mmHg. Wounds were sharply surgically debrided full-thickness through skin into subcutaneous tissue. See operative findings for measurements. The skin edges were debrided with 15' blade, some bleeding noted. Left foot delayed primary closure: Post debridement, there was some bleeding was noted. Granular base was noted. No purulence or signs of infection noted. The left dorsal medial and dorsal lateral incisions were able to be reapproximated. Nylon was used to close skin in an interrupted simple suture fashion. Suture guard was applied over the highest area of tension on both the medial and lateral incision. After delayed primary closure, there was no open wound. Adjacent soft tissue rearrangement/derotational skin flap: After the third MPJ wound had been sharp excisionally debrided as above, there was not enough skin to close that wound. The skin from the prior amputation site was utilized in a derotational skin flap in order to cover the third MTPJ wound. The skin from the second toe was rotated plantar medial to dorsal lateral covering the open wound. Nylon was used to close skin in an interrupted simple suture fashion. No open wound remaining after skin flap. 10cc 0.5% marcaine plain given at end of case. The wounds were cleansed. Xeroform, Betadine soaked gauze, dry sterile dressing was then applied to the foot. The patient was awoken from anesthesia and transferred to recovery with vital signs stable and neurovascular status intact. The patient tolerated the procedure and anesthesia well, without complications. Materials: Kirk guard (suture guard) x2 Discharge/Plan: Ok to discharge home when ready and vss. Patient is to maintain dressing clean dry and intact. Elevate on two pillows. Hold ice to toes. DOS: IV Vanco 1g and oral Doxy x10d post-op. Non weight bearing to the left lower extremity with DME assistance. Follow up outpatient in one week as scheduled. Tourniquet time (min): 28 Condition: stable Disposition: same day Specimens:: Left 2nd toe gross path Left 2nd toe bone path Left 2nd toe bone culture Complications:: None
--- NOTE | 2023-08-27 14:36 | P.PNANES_ITS ---
[facility] Anesthesia Record Part I Anesthesia Record I Intake, IV Amount: 350 Hydration: Adequate Estimated blood loss (mL): 29 Urine output (mL): 0 Blood Products used (#): none Blood Pressure: 129/104 SaO2: 98 Pulse Rate: 90 Airway Patency: Patent Respiratory Rate: 12 Temperature: 97.7 F Patient is:: Drowsy and Stable Stable to PACU at:: 14:27
--- NOTE | 2023-08-28 11:22 | EXP.ANES.II ---
[facility] Anesthesia Record Part II Anesthesia Record Part II Discharge Time: 14:57 Destination: Surgical Day Care (OP Surgery) PACU nurse assessment reviewed?: Yes Patient Condition:: Good Anesthesia Complications:: None Swallowing reflex intact?: Yes Airway Patency: Patent Cyanosis?: No Blood Pressure: 137/91 SaO2: 90 Respiratory Rate: 18 Pulse Rate: 82 Temperature: 97.6 F Mental Status: Alert & Oriented Pain level:: 3 Nausea and/or vomitting:: None Intake, IV Amount: 0 Hydration: Adequate
[2023-08-28 11:23] VITALS: BP 137/91; PULSE 82; RESP 18; TEMP 36.4; O2SAT 90
== END 2023-08-27 15:28 | disposition home or self-care (01) ==
PROVIDERS: PCP Nurse Practitioner Family; Visit Provider Podiatrist
PROC: (CPT 28820; principal; 2023-08-27 12:45)
DX: M86.172 Other acute osteomyelitis, left ankle and foot (principal); M87.878 Other osteonecrosis, left toe(s); T81.31XA Disruption of external operation (surgical) wound, not elsewhere classified, initial encounter; Z79.899 Other long term (current) drug therapy; Z79.85 Long-term (current) use of injectable non-insulin antidiabetic drugs; E03.9 Hypothyroidism, unspecified; A05.4 Foodborne Bacillus cereus intoxication
CPT/HCPCS: 28820; 11042; 20670; 73630; 84703; 87077; 87186; 88304; 96374; J1100; J1580; J2250; J2405; J2704; J3010; J3370; J7120

== ENCOUNTER 2023-10-08 11:39 | Outpatient (CLI) | payer BC, SELFPAY ==
--- NOTE | 2023-10-08 11:42 | XR_ITS ---
FINAL REPORT CLINICAL HISTORY: Foot pain COMPARISON: 08/27/2023 FINDINGS: Left foot Three views were obtained. There are 2 sideplate and screws securing the 1st metatarsophalangeal joint. There are screw plates and screws securing the 1st, 2nd, and 3rd tarsometatarsal joints. There has been resection of the 2nd digit. IMPRESSION: Postsurgical changes as detailed above. Reviewed, Interpreted and Dictated by Akhil Huang MD Transcribed by Laureen Hobbs Authenticated and [facility]
== END 2023-10-08 23:59 | disposition home or self-care (01) ==
LOC: RAD 11:40
PROVIDERS: PCP Nurse Practitioner Family; Visit Provider Podiatrist
DX: M79.672 Pain in left foot (principal); Z98.890 Other specified postprocedural states
CPT/HCPCS: 73630

== ENCOUNTER 2024-05-26 12:13 | Outpatient (CLI) | payer BC, SELFPAY ==
--- NOTE | 2024-05-26 12:17 | XR_ITS ---
FINAL REPORT CLINICAL HISTORY: Right foot pain COMPARISON: 10/07/2022 FINDINGS: Three views of the right foot show severe hallux valgus deformity. There are mild degenerative changes of the 1st MTP joint. Moderate degenerative changes are noted of the 1st tarsometatarsal joint. There is no evidence of fracture. IMPRESSION: Severe hallux valgus deformity. Reviewed, Interpreted and Dictated by Eriberto Velasquez MD Transcribed by Marlene Wilhelm Authenticated and [facility]
--- NOTE | 2024-05-26 12:17 | XR_ITS ---
FINAL REPORT CLINICAL HISTORY: Left foot pain COMPARISON: 10/08/2023 FINDINGS: Three views of the left foot show postoperative changes from resection of the 2nd through 5th metatarsal heads. There is amputation of the 2nd digit to the level of the distal metatarsal. Surgical fusion of the medial midfoot and 1st MTP joint are noted. There is no evidence of fracture or obvious bony destruction. IMPRESSION: Extensive postoperative changes. Reviewed, Interpreted and Dictated by Eriberto Velasquez MD Transcribed by Marlene Wilhelm Authenticated and [facility]
--- OUTSIDE RECORDS SUMMARY | 2024-05-26 23:21 | XMS_ITS ---
Author Organization Unknown Medications Medication Instructions Effective Dates (start - stop) Status methylphenidate hydrochlorid e 20 MG Oral Tablet [id number]:00:00.000+00 :00 - Completed tobramycin 3 MG/ML Ophthalmi c Solution [id number]:00:00.000+00 :00 - Completed prednisone 20 MG Oral Tablet 04-18-12T:00:00.000+00 :00 - Completed methylphenidate hydrochlorid e 20 MG Oral Tablet [id number]:00:00.000+00 :00 - Completed hydroxyzine hydrochloride 10 MG Oral Tablet [id number]:00:00.000+00 :00 - Completed tobramycin 3 MG/ML Ophthalmi c Solution [id number]:00:00.000+00 :00 - Completed escitalopram 20 MG Oral Tablet 2 [id number]:00:00.000+00 :00 - Completed ondansetron 8 MG Disintegrat ing Oral Tablet [id number]:00:00.000+00 :00 - Completed escitalopram 20 MG Oral Tablet 2 [id number]:00:00.000+00 :00 - Completed {21 (methylprednisolone 4 MG Oral Tablet) } Pack [id number]:00:00.000+00 :00 - Completed ibuprofen 800 MG Oral Tablet 04-20-13:00:00.000+00 :00 - Completed methylphenidate hydrochlorid e 20 MG Oral Tablet [id number]:00:00.000+00 :00 - Completed azithromycin 250 MG Oral Tablet [id number]:00:00.000+00 :00 - Completed methylphenidate hydrochlorid e 20 MG Oral Tablet [id number]:00:00.000+00 :00 - Completed gentamicin 3 MG/ML Ophthalmi c Solution [id number]:00:00.000+00 :00 - Completed buspirone hydrochloride 10 M G Oral Tablet [id number]:00:.000+00 :00 - Completed methylphenidate hydrochlorid e 20 MG Oral Tablet [id number]:00:.000+00 :00 - Completed methylphenidate hydrochlorid e 20 MG Oral Tablet [id number]::00.000+00 :00 - Completed ibuprofen 800 MG Oral Tablet 04-18-28:00:00.000+00 :00 - Completed buspirone hydrochloride 10 M G Oral Tablet [id number]::00.000+00 :00 - Completed levothyroxine sodium 0.125 M G Oral Tablet [id number]::.000+00 :00 - Completed amphetamine aspartate 2.5 MG / amphetamine sulfate 2.5 MG / dextroamphetamine saccharate 2.5 MG / dextroamphetamine sulfate 2.5 MG Oral Tablet [id number]::.000+00 :00 - Completed amphetamine aspartate 5 MG / amphetamine sulfate 5 MG / dextroamphetamine saccharate 5 MG / dextroamphetamine sulfate 5 MG Oral Tablet [id number]::.+00 :00 - Completed amphetamine aspartate 2.5 MG / amphetamine sulfate 2.5 MG / dextroamphetamine saccharate 2.5 MG / dextroamphetamine sulfate 2.5 MG Oral Tablet [id number]:00:00.+00 :00 - Completed acetaminophen 325 MG / oxyco done hydrochloride 5 MG Oral Tablet [id number]:00:00. +00 :00 - Completed amoxicillin 500 MG / clavula raciel 125 MG Oral Tablet [id number]:00:00.000+00 :00 - Completed amphetamine aspartate 2.5 MG / amphetamine sulfate 2.5 MG / dextroamphetamine saccharate 2.5 MG / dextroamphetamine sulfate 2.5 MG Oral Tablet [id number]:00:00.000+00 :00 - Completed hydrochlorothiazide 12.5 MG / losartan potassium 100 MG Oral Tablet [id number]:00:00.000+00 :00 - Completed amphetamine aspartate 5 MG / amphetamine sulfate 5 MG / dextroamphetamine saccharate 5 MG / dextroamphetamine sulfate 5 MG Oral Tablet [id number]:00:00.000+00 :00 - Completed 12 HR chlorpheniramine polis tirex 1.6 MG/ML / hydrocodone polistirex 2 MG/ML Extended Release Suspension [id number]:00:00. 000+00 :00 - Completed amphetamine aspartate 2.5 MG / amphetamine sulfate 2.5 MG / dextroamphetamine saccharate 2.5 MG / dextroamphetamine sulfate 2.5 MG Oral Tablet [id number]:00:00.000+00 :00 - Completed amphetamine aspartate 5 MG / amphetamine sulfate 5 MG / dextroamphetamine saccharate 5 MG / dextroamphetamine sulfate 5 MG Oral Tablet [id number]:00:00.000+00 :00 - Completed Patient Care team information Name Category Status Period Participants - - Proposed period not known -
== END 2024-05-26 23:59 | disposition home or self-care (01) ==
LOC: RAD 12:13
PROVIDERS: PCP Nurse Practitioner Family; Visit Provider Podiatrist
DX: M79.671 Pain in right foot (principal); M79.672 Pain in left foot; M25.571 Pain in right ankle and joints of right foot; M25.572 Pain in left ankle and joints of left foot; G89.29 Other chronic pain
CPT/HCPCS: 73630

== ENCOUNTER 2024-06-07 10:30 | Outpatient (CLI) | payer BC, SELFPAY ==
--- NOTE | 2024-06-07 10:30 | MR_ITS ---
FINAL REPORT CLINICAL HISTORY: subcondral bone cyst, MTPJ soft tissue, plantar plate. entire foot pain. no injury or trauma COMPARISON: None FINDINGS: Multiplanar MR imaging of the right foot was performed without contrast. The Achilles tendon and plantar fascia are intact. The bony structures are intact without evidence of fracture. There are several small subchondral cysts along the medial distal tibia at the level of the ankle mortise. Largest measures up to 6 mm. These are best seen on images 38 and 39 of series 6 and 5. There is mild edema within the lateral cuneiform, well seen on images 19-21 of series 4. There is marked hallux valgus deformity. Lateral subluxation is noted of the 1st proximal phalanx. There are moderate hypertrophic changes of the 1st MTP joint. The flexor and extensor tendons are intact. The musculature is intact. The plantar aponeurosis is intact. IMPRESSION: Osteochondral degenerative cysts medial distal tibia. Hallux valgus deformity. Reviewed, Interpreted and Dictated by Akhil Huang MD Transcribed by Marlene Wilhelm Authenticated and [facility]
--- NOTE | 2024-06-07 11:30 | CT_ITS ---
FINAL REPORT TECHNIQUE: Thin section axial CT images with coronal and sagittal reformats were performed of the right foot. This study was performed with techniques to keep radiation doses as low as reasonably achievable (ALARA). Individualized dose reduction techniques using automated exposure control or adjustment of mA and/or kV according to the patient''s size were employed. CLINICAL HISTORY: Surgical Planning of right foot COMPARISON: None FINDINGS: There is a minimal plantar calcaneal spur. Minimal hypertrophic changes are noted over the dorsal intertarsal joints. There is a degenerative subchondral cyst along the articular margin of the distal tibia measuring 5 mm in AP and 7 mm in transverse dimension. Marked hallux valgus deformity is noted with lateral subluxation of the 1st proximal phalanx. The hallux valgus deformity measures 70 degrees. IMPRESSION: Hallux valgus deformity. Degenerative subchondral cyst. Reviewed, Interpreted and Dictated by Akhil Huang MD Transcribed by Marlene Wilhelm Authenticated and [facility]
== END 2024-06-07 23:59 | disposition home or self-care (01) ==
LOC: RAD 10:30
PROVIDERS: PCP Nurse Practitioner Family; Visit Provider Podiatrist
DX: M85.671 Other cyst of bone, right ankle and foot (principal)
CPT/HCPCS: 73700; 73718

== ENCOUNTER 2024-07-12 11:12 | Outpatient (CLI) | payer BC, SELFPAY ==
--- OUTSIDE RECORDS SUMMARY | 2024-07-12 11:14 | XMS_ITS ---
Author Organization Unknown Medications Medication Instructions Effective Dates (start - stop) Status methylphenidate hydrochlorid e 20 MG Oral Tablet [id number]:00:00.000+00 :00 - Completed tobramycin 3 MG/ML Ophthalmi c Solution [id number]:00:00.000+00 :00 - Completed prednisone 20 MG Oral Tablet 04-18-12T:00:00.000+00 :00 - Completed methylphenidate hydrochlorid e 20 MG Oral Tablet [id number]:00:00.000+00 :00 - Completed hydroxyzine hydrochloride 10 MG Oral Tablet [id number]:00:00.000+00 :00 - Completed tobramycin 3 MG/ML Ophthalmi c Solution [id number]:00:00.000+00 :00 - Completed escitalopram 20 MG Oral Tablet 2 [id number]:00:00.000+00 :00 - Completed ondansetron 8 MG Disintegrat ing Oral Tablet [id number]:00:00.000+00 :00 - Completed escitalopram 20 MG Oral Tablet 2 128-84-83Z48:00:00.000+00 :00 - Completed {21 (methylprednisolone 4 MG Oral Tablet) } Pack [id number]:00:00.000+00 :00 - Completed ibuprofen 800 MG Oral Tablet 04-20-13:00:00.000+00 :00 - Completed methylphenidate hydrochlorid e 20 MG Oral Tablet [id number]:00:00.000+00 :00 - Completed azithromycin 250 MG Oral Tablet 9736-91-60P12:00:00.000+00 :00 - Completed methylphenidate hydrochlorid e 20 MG Oral Tablet [id number]:00:00.000+00 :00 - Completed gentamicin 3 MG/ML Ophthalmi c Solution [id number]:00:00.000+00 :00 - Completed buspirone hydrochloride 10 M G Oral Tablet [id number]:00:.000+00 :00 - Completed methylphenidate hydrochlorid e 20 MG Oral Tablet [id number]:00:.000+00 :00 - Completed methylphenidate hydrochlorid e 20 MG Oral Tablet 1658-52-50H02::00.000+00 :00 - Completed ibuprofen 800 MG Oral Tablet 04-18-28:00:00.000+00 :00 - Completed buspirone hydrochloride 10 M G Oral Tablet [id number]::00.000+00 :00 - Completed levothyroxine sodium 0.125 M G Oral Tablet [id number]::.000+00 :00 - Completed amphetamine aspartate 2.5 MG / amphetamine sulfate 2.5 MG / dextroamphetamine saccharate 2.5 MG / dextroamphetamine sulfate 2.5 MG Oral Tablet [id number]::.000+00 :00 - Completed amphetamine aspartate 5 MG / amphetamine sulfate 5 MG / dextroamphetamine saccharate 5 MG / dextroamphetamine sulfate 5 MG Oral Tablet [id number]::.+00 :00 - Completed amphetamine aspartate 2.5 MG / amphetamine sulfate 2.5 MG / dextroamphetamine saccharate 2.5 MG / dextroamphetamine sulfate 2.5 MG Oral Tablet 7299-51-01X34:00:00.+00 :00 - Completed acetaminophen 325 MG / oxyco done hydrochloride 5 MG Oral Tablet 8709-10-27C85:00:00. +00 :00 - Completed amoxicillin 500 MG / clavula raciel 125 MG Oral Tablet [id number]:00:00.000+00 :00 - Completed amphetamine aspartate 2.5 MG / amphetamine sulfate 2.5 MG / dextroamphetamine saccharate 2.5 MG / dextroamphetamine sulfate 2.5 MG Oral Tablet [id number]:00:00.000+00 :00 - Completed hydrochlorothiazide 12.5 MG / losartan potassium 100 MG Oral Tablet [id number]:00:00.000+00 :00 - Completed amphetamine aspartate 5 MG / amphetamine sulfate 5 MG / dextroamphetamine saccharate 5 MG / dextroamphetamine sulfate 5 MG Oral Tablet [id number]:00:00.000+00 :00 - Completed 12 HR chlorpheniramine polis tirex 1.6 MG/ML / hydrocodone polistirex 2 MG/ML Extended Release Suspension [id number]:00:00. 000+00 :00 - Completed amphetamine aspartate 2.5 MG / amphetamine sulfate 2.5 MG / dextroamphetamine saccharate 2.5 MG / dextroamphetamine sulfate 2.5 MG Oral Tablet [id number]:00:00.000+00 :00 - Completed amphetamine aspartate 5 MG / amphetamine sulfate 5 MG / dextroamphetamine saccharate 5 MG / dextroamphetamine sulfate 5 MG Oral Tablet [id number]:00:00.000+00 :00 - Completed Patient Care team information Name Category Status Period Participants - - Proposed period not known -
--- NOTE | 2024-07-12 11:59 | ECG_ITS ---
APPROVED REPORT Exam: Resting ECG HR:81 bpm ECG Measurements Heart Rate 81 AXES PA 143 P 60 QRSd 96 QRS 74 QT 392 T 38 QTc 430 Conclusion SINUS RHYTHM LOW QRS VOLTAGE IN PRECORDIAL LEADS [QRS DEFLECTION < 1.0 mV IN CHEST LEADS] BORDERLINE ECG UNCONFIRMED REPORT Electronically signed by : Clayton Gonzales MD 07/13/2024 08:49:29
--- NOTE | 2024-07-12 12:17 | XR_ITS ---
FINAL REPORT TECHNIQUE: Chest PA & Lateral CLINICAL HISTORY: Pre-operative testing. former smoker quit smoking 10years ago COMPARISON: 06/23/2023 FINDINGS: 2 views of the chest were performed. The heart size is normal. The mediastinum is within normal limits. There is no acute cardiopulmonary process. There are no pleural effusions. There is no pneumothorax. The bony thorax appears intact. IMPRESSION: No acute cardiopulmonary process. Reviewed, Interpreted and Dictated by Akhil Huang MD Transcribed by Lyric Cartwright Authenticated and [facility]
== END 2024-07-12 23:59 | disposition home or self-care (01) ==
LOC: PREOP 11:13
PROVIDERS: PCP Nurse Practitioner Family; Visit Provider Podiatrist
DX: R94.31 Abnormal electrocardiogram [ECG] [EKG] (principal); Z01.811 Encounter for preprocedural respiratory examination
CPT/HCPCS: 71046; 93005

== ENCOUNTER 2024-07-20 06:49 | Day surgery (SDC) | payer BC, SELFPAY ==
[2024-07-12 12:53] LABS: Basophils # 0.1 K/mm3 (0-0.2); Basophils % 0.5 % (0.1-2.0); Eosinophils # 0.1 Kmm3 (0.0-0.4); Eosinophils % 1.1 % (0.1-12.0); Hematocrit 39.4 % (37.0-47.0); Hemoglobin 14.7 g/dL (12.2-16.2); Immature Granulocytes # 0.04 10^3uL; Immature Granulocytes % 0.4 %; Lymphocytes # 2.6 K/mm3 (0.7-4.5); Lymphocytes % 25.6 % (10-50); Mean Corpuscular HGB Conc 37.3 g/dL (31.8-35.4); Mean Corpuscular Hemoglobin 33.3 pg (27.0-31.2); Mean Corpuscular Volume 89.3 fl (81-99); Monocytes # 0.6 K/mm3 (0.1-1.0); Monocytes % 6.3 % (1.7-9.3); Neutrophils # 6.7 K/mm3 (1.8-7.8); Neutrophils % 66.1 % (37.0-80.0); Nucleated Red Blood Cells # 0 10^3/uL; Nucleated Red Blood Cells % 0 %; Platelet Count 218 K/mm3 (142-424); Red Blood Count 4.41 M/mm3 (4.20-5.40); Red Cell Distribution Width 13.7 % (11.5-17.5); Red Cell Distribution Width-SD 40.7 fL; White Blood Count 10.2 K/mm3 (4.8-10.8)
[2024-07-12 13:00] LABS: Alanine Aminotransferase 19 U/L (12-78); Albumin Level 4.4 g/dl (3.5-5.0); Albumin/Globulin Ratio 1.5 (1.1-1.8); Alkaline Phosphatase 78 U/L (38-126); Anion Gap 9.5 mEq/L (5-15); Aspartate Amino Transferase 35 U/L (14-36); Bilirubin,Total 0.9 mg/dl (0.2-1.3); Blood Urea Nitrogen 11 mg/dl (7-17); Carbon Dioxide 29 mmol/L (22.0-30.0); Chloride 100 mmol/L (98-107); Estimated Glomerular Filt Rate 168 ml/min (>60); GFR (African American) 203 ML/MIN (>60); Glucose 97 mg/dl (74-100); Potassium 3.5 mmoL/L (3.5-5.1); Sodium 135 mmol/L (136-145); Total Protein,Serum 7.4 g/dl (6.3-8.2)
[2024-07-12 13:05] LABS: C-Reactive Protein 7.4 mg/L (0-4)
[2024-07-12 13:17] LABS: 25-OH Vitamin D, Total 29.5 ng/mL (30-100)
[2024-07-12 13:47] LABS: Erythrocyte Sedimentation Rate 9 mm/hr (0-30)
[2024-07-12 14:02] LABS: Hemoglobin A1C 4.9 % (4.0-6.0)
[2024-07-20] VITALS (10 sets, daily range): BP systolic 112–138; BP diastolic 61–82; PULSE 66–102; RESP 16–22; TEMP 36.4–43; O2SAT 94–97
--- NOTE | 2024-07-20 07:38 | EXP.ANES.CKL ---
[facility] Disclaimer: The information contained in this section may have been updated after the patient was seen, as this information can be updated by other users. Medical History Hypothyroid Bilateral ankle pain Bilateral foot pain Surgical History (Updated 07/12/24 @ 11:42 by Domenica Lim RN) History of bunionectomy History of gastric bypass Family History Other Family history of arthritis Family history of cancer Social History Smoking Status: Never smoker alcohol intake: current substance use type: denies use current occupational status: employed Travel in the last 8 weeks?: None Have you lived/traveled outside [place] in past 30 days?: No Contact w/someone who lives/traveled outside US past 30 days?: No Exposure to someone with infectious disease in past 14 days?: No Do you have a fever (greater than 100.4 F or 38 C)?: No Have you tested positive for COVID-19?: No Exposed to someone with COVID-19 in past 14 days?: No Do you have a sore throat?: No Do you have a cough?: No Do you have any weakness?: No Do you have any diarrhea?: No Are you experiencing any unusual bleeding?: No Do you have any muscle aches/pain?: No Do you have any abdominal pain?: No Are you experiencing loss of taste or smell?: No [facility] Anesthesia Checklist Patient Identification Patient Identification: Arm Band and Family Structural Data Admitted From: Home Planned Operative Procedure/s: Right Lapidus Bunionectomy Consent for Planned Operative Procedure(s) Verified: Yes Verified Documents: Surgical Consent and History and Physical NPO Status Verified Time NPO: 00:00 Additional verifications Patient : No Anesthesia Reactions: No Hx Blood Transfusions: No Blood Transfusion Reaction: No Cephalosporin Allergy: No Previous Colonoscopy: No Airway Assessment Mallampati Score:: Class II C-Spine Mobility Assessed: Yes TMJ Mobility Assessed: Yes Dentition: Edentulous Neurological Assessment Level of Consciousness: Awake, Alert, Appropriate and Follows Commands Hx Seizures: No Numbness or tingling in extremities: No Anesthesia Plan Anesthesia Risk discussed: Yes ASA Class: II Anesthesia Type: General w/block
[2024-07-20 08:09] LABS: Erythrocyte Sedimentation Rate 22 mm/hr (0-30)
--- NOTE | 2024-07-20 08:17 | EXP.OP.NOTE ---
Date of procedure: 07/20/24 Pre-op Diagnosis:: Right foot metatarsus adductus Osteoarthritis Hallux valgus Pes planus Hammertoes 2-5 Cross over toe deformity, 2-3rd MPJ dislocation Angular toe deformity Metatarsalgia Post-op Diagnosis:: Same Procedure performed:: Right lapidus bunionectomy (54606) 2-3rd tarsometatarsal joint arthrodesis with osteotomy/flatfoot correction (49067) ORIF cuneiform 1st MTPJ arthrodesis (66517) Open treatment of MPJ dislocation (87657) 2-5th MPJ capsulotomy (20304) Autograft bone harvest (64546) Hammertoe repair, digits 2-4 (30271) Reconstruction of angular toe deformity, digit 5 (34647) Partial (tucker) metatarsal head resection 2-5 (24574) Partial excision phalanx, digit 5 (35430) Z lengthening extensor tendon 1-3 Surgeon:: Sadia Nieto DPM COOK[employer] PACKER:: Other (Jonnathan ) Anesthesia: GETA and regional (R nerve block) Estimated blood loss (mL): 50 Clinical Note:: Indications: 53F who presents with painful right metatarsus adductus, bunion and hammertoe deformity. Patient has had recent x-rays, ABIs, DEXA scan, CT, MRI right foot and labs. She has failed conservative care: modification of shoe gear, modification of activity, RICE protocol, stretching, bunion sleeve/splint, toe spacers/sleeves/caps, pads, and NSAIDs. Patient had left foot reconstructive surgery 07/15/23: s/p left lapidus, 1st MTPJ AD, 2-3rd TMT AD, HT 2-5, tucker met head resection 2-5, calc autograft bone harvest. The patient has been instructed on the planned procedure, all risk versus benefits of the procedure to include bleeding, infection, nerve and blood vessel damage, need for further surgery, delay in healing of soft tissue or bone, failure of bones to heal, non-union, mal-union, failure of implant/need for removal, prolonged pain and recovery, prolonged swelling, CRPS/RSD, DVT/PE and anesthetic complications including . Patient is a former smoker with no history of DVT/PE. Discussed aspirin 81 mg postop. Discussed increased risk of infection, wound dehiscence due to extent of surgery, multiple incisions and former smoker history. Discussed increased risk of gangrene and amputation due to complications from left foot surgery. History of left second toe amp due to lack of blood flow to distal toe, gangrene postop. No guarantees were given. Patient verbalized she would like to avoid two surgeries if possible and if the toe does not pink up like it should in surgery , to proceed with toe amputation primarily. All questions fully answered. The patient verbalized understanding and agreement. Verbal and written consent obtained. Operative findings:: Significant right foot deformity. Right hallux valgus with hypermobile first ray. Arthritic degenerative changes with dorsal exostosis/spurring noted to the first second and third tarsometatarsal joints. There was no viable medial capsular tissue noted to the 1-3rd MPJ. The tissue was synovitic. Around the joint capsules the tissue appeared rubbery. The skin itself was very fragile and upon reduction of the deformity the skin was very easily bruised and torn. Crossover toe deformities. Windswept deformities to the digits 1 through 5, laterally. The second and third digits were dorsally and laterally dislocated at the level of the MPJ. The first metatarsal head had more than 55-60% arthritic damage to the joint. The second metatarsal head had over 80% cartilage damage. There were arthritic changes noted to the remaining metatarsal heads. Metatarsal heads were removed and a tucker metatarsal head fashion similar to a rheumatoid arthritis type case in order to relocate the digits. Due to the significant soft tissue contracture in order to relocate and maintain reduced position of the digits, extensor tendon lengthenings and the pattern met head resection had to be performed. No signs of infection. The bone quality was poor due to the arthritic changes and extensive subchondral bone cysts throughout the foot. Modifier: This case took 2-2.5 hours longer than normal due to the significant deformity. The metatarsus adductus, bunion, arthritic changes, toe dislocations added to the complexity of the case. The patient's soft tissue was synovitic and rubbery almost the consistency is like a autoimmune disease. This made the skin very fragile and easy to tear. Bruising with the mildest tissue handling. So extra care was utilized in the soft tissue dissection and closure. There was redundant skin medially and tight skin laterally. If the arthritic degenerative changes in the subchondral bone cyst warranted bone grafting with both the calcaneal autograft and allograft to fill the cystic defects. Postop concern: Wound healing, wound dehiscence, skin necrosis and gangrene discussed with patient/. Operative note:: On this date and time, the patient was deemed an appropriate surgical candidate. With informed consent signed, the patient was taken to the operating theater after anesthesia did a regional nerve block. The patient was positioned supine. General anesthesia was induced. Tourniquet was applied to the right thigh. The right lower extremity was prepped and draped in normal sterile fashion. IV Vanco infused. Right calcaneal autograft bone harvest: Attention was directed to the lateral calcaneus where a an incision was mapped out. Dissection was carried down full-thickness to the level of the bone. Utilizing an autograft bone harvester drill was inserted into the calcaneus and drill. Approximately 15 cc of calcaneus cancellous bone was obtained. Wound was flushed with saline. Nylon used to close the skin. Right Lapidus bunionectomy: Tourniquet was inflated 250 mmHg. Attention directed to the dorsal medial foot where an incision was mapped out over the first metatarsal cuneiform joint. Dissection carried down full-thickness down to the level of the bone with care taken to maintain surgical hemostasis and preserve neurovascular structures. There was arthritic changes noted to the dorsal lateral aspect of the first tarsometatarsal (TMT) joint. First TMT release performed. Right multiple midfoot athrodesis: Utilizing intraoperative fluoroscopy, separate incision was made over the third TMTJ. Care taken to ensure an adequate skin bridge of 4 cm between the dorsal medial and dorsal lateral incisions. A longitudinal incision was made over the 3rd TMT joint. Careful dissection through skin subcutaneous tissue and retinaculum, care taken to leave ligamentous attachment between the 2nd and 3rd metatarsals. The 2nd and 3rd TMT joints were located and exposed. Complete release of the interval between the 3rd and 4th metatarsals was performed with a [employer] triple Edge release instrument and osteotome. The Adductoplasty planer system was utilized and inserted into the joints. Utilizing a saw the joints were planed. Next the cut guide was inserted into the joints. Intraoperative fluoroscopy was used to confirm position of the cut guides. Sagittal saw used to make continuous metatarsal and cuneiform cuts across both the 2nd and 3rd TMT joints. The bone slices were removed. All articular cartilage had been removed. This was confirmed with intraoperative fluoroscopy. Due to the significant met adductus deformity, a 9 degree cut guide was then utilized to resect more bone off the metatarsal in order to reduce the deformity. Joints were flushed with saline. Next drill bit was used to fenestrate through the subchondral bone plates on both the joints. The autograft from the calcaneus was inserted to the fusion sites. TMT joints were manually reduced and a compressor was applied over the joints holding the reduction. Again reduction confirmed under intraoperative x-ray. Upon insertion of the temporary fixation, the second metatarsal bone cracked due to the degenerative changes and bone cysts. A Lapiplasty lesser TMT fixation speed plate was then applied on the dorsal 3rd TMT joint. Allograft was packed into the joint sites. It was inserted and fixated in standard technique. Deformity further reduced and plate was then inserted on the 2nd TMT joint. Fluoroscopy used to check position of fixation and it was noted to be adequate with reduction of the deformity. Attention was then directed back to the first tarsometatarsal joint. Next a pin was inserted dorsal medial parallel to the first TMT joint and the bunion deformity was reduced. Next in standard technique the Lapiplasty 3in1 guide and positioner was inserted into the TMT joint. Intraoperative fluoroscopy was utilized to confirm position. The positioner was tightened and the deformity was reduced. The sesamoids were realigned underneath the first metatarsal head. At this point temporary fixation was inserted. Cut guide applied and bone cuts were made. A rongeur was used to resect excess dorsal spur. Next the incision was flushed with copious amounts of normal sterile saline. The joint was then distracted and the joint surfaces were fenestrated with a 2 mm drill fenestrating subchondral bone surfaces. The joint was then compressed and provisional fixation was inserted. The autograft from the calcaneus was inserted to the fusion site. Quad speed plates then applied in standard technique. AP and lateral fluoroscopy views used to confirm position of the fixation. Some reduction of the deformity was noted with stable fixation. A splay test was performed and there was some instability noted at the level of the intercuneiform's. There was some bleeding noted to the Lisfranc region along a perforating vessel, controlled with electrocautery, hand ties and Surgicel. Right ORIF cuneiform: Due to instability at the level of the cuneiforms the medial and medial cuneiforms were reduced and a cannulated screw was inserted in standard technique from medial to lateral across the joints. Intraoperative fluoroscopy was used to check position and there was some reduction of the instability at this level. Wound flushed. Right 1st MTPJ arthrodesis: New incision was made over the 1st MTPJ extending to the proximal phalanx. Full-thickness dissection. There was significant contracture of the extensor tendons so a Z-lengthening was performed. Due to the significant bunion deformity with degenerative changes of the metatarsal head, decision was made to perform the first MPJ fusion. Joint was prepared with reamers in standard technique removing all damaged cartilage. Deformity was reduced and confirmed under intraoperative fluoroscopy. Next 2 dual Speed plates were inserted in standard technique without complication. The K wire used to reduce the joint was retained for extra stability. All fixation was deemed to be stable without joint impingement. Wound flushed. Deep and subcutaneous tissue closed with Vicryl. Skin was reapproximated with nylon. Right tucker met head resection, MPJ capsulotomy: Due to the significant deformity of the toes, toes were unable to be fully relocated without them dislocating again. Incision was made between the second and third and a separate incision between the fourth and fifth metatarsal heads. Full-thickness dissection. Extensor tendon lengthening was performed. MTPJ capsule releases performed 2-5. Saw blade used to resect metatarsal heads without complication. Met head sent for pathology specimen. No signs of infection. The digits were then able to be reduced at the level of the MPJ. Hammertoe repair 2-5, correction of crossover second toe, correction of angular toe deformity: Linear incisions were made over the 2-4th PIPJ's. A wedge incision was made of the fifth PIPJ in order to derotate the fifth toe deformity. Dissection carried down to the level of the extensor tendons which were transected at the level of the PIPJ. Head of the proximal phalanx 2-5 were resected. Base of the middle phalanx 2-4 resected. Wound flushed with saline. Toe deformities were reduced. Due to soft bone quality, hammertoe implant was not utilized to the second digit, K wire was inserted and left intact. The remaining toe bones were irregular with soft cystic changes. Decision made to use smooth K wires on remaining digits 3-5 as well. Wounds were flushed. Vicryl was used to reapproximate deep and subcutaneous tissue. Graft inserted prior to skin closure to prevent scar tissue, adhesions, and reduce chance of wound dehiscence. Application of amniotic graft: Given the patient's comorbidities and risk for wound and skin healing complications secondary to reduction of deformity, decision was made to use amniotic tissue in the incisions. It was inserted without complication. Application of posterior splint: Tourniquet had been deflated at 125 minutes and immediate hyperemic response was noted to the digits. It was left down for the remainder of the case without re-inflation. Skin was cleansed with peroxide and dried. Xeroform applied to the incisions and around the K wires. Betadine soaked gauze applied. A dry sterile dressing was then applied along with a below-knee posterior splint. Patient was awoken from anesthesia and transferred to recovery with vital signs stable. Patient appeared to tolerate procedure and anesthesia well without complication. Materials: Treace Quad Speed plate x2, Dual Speed plate x2, 1st MTPJ anatomic plate 4 hole plate, 2.7mm locking x2, 3.5mm cannulated screw x1, 0.062 K wire x2, 0.045 smooth K wire x2, Paligen 4x4cm amniotic graft, Giveit100 Tensix 10cc Surgicel x1 Plan: Maintain dressing clean dry and intact to right foot. NWB to RLE in splint with DME. Has knee scooter. Take prescriptions as directed. Polar pack behind the knee. Postop x-rays. Follow-up outpt in 1 week for skin check and dressing change. Tourniquet time (min): 125 Condition: stable Disposition: same day Specimens:: Right metatatarsal heads Complications:: None
[2024-07-20 09:06] LABS: Uric Acid 4.9 mg/dl (2.5-6.2)
[2024-07-20] MEDS: VANCOMYCIN/WATER FOR INJ (PEG) 1.25 GM/250 ML PIGGYBACK IV (10:23)
--- NOTE | 2024-07-20 13:00 | XR_ITS ---
FINAL REPORT CLINICAL HISTORY: s/p lapiplasty, multiple midfoot fusion, HT COMPARISON: None FINDINGS: AP, oblique and lateral views of the right foot were obtained. Extensive postoperative changes are noted. The overall exam quality is severely limited secondary to the plaster cast and the patient's osteopenia. There has been extensive fusion in the forefoot and midfoot. The surgical hardware appears grossly intact. Soft tissues are unremarkable. Suggest further radiographic examination when the cast is removed. IMPRESSION: Severely limited exam secondary to a plaster cast in the patient's osteopenia. Extensive fusions have been performed in the forefoot and midfoot, and the surgical hardware appears grossly intact. Suggest further radiographic examination when the cast is removed. Reviewed, Interpreted and Dictated by Sofiya Howe MD Transcribed by Marium Stark Authenticated and [facility]
--- NOTE | 2024-07-20 14:09 | XR_ITS ---
FINAL REPORT CLINICAL HISTORY: LAPIDUS FLUORO TIME: 3.38 4.43 MGY COMPARISON: None FINDINGS: FLUOROSCOPY LESS THAN 1 HOUR HISTORY: FINDINGS: Fluoroscopic guidance was provided for Lapidus procedure. A single spot film was obtained. 3: 38 minutes of fluoroscopy time were used with a dosage of 4.43 mGy. IMPRESSION: As above. Reviewed, Interpreted and Dictated by Sofiya Howe MD Transcribed by Marium Stark Authenticated and . [facility]
[2024-07-20 14:39] LABS: Microscopic,Cath URINE MICROSCOPIC (MICROSCOPIC)
--- NOTE | 2024-07-20 14:40 | P.PNANES_ITS ---
[facility] Anesthesia Record Part I Anesthesia Record I Intake, IV Amount: 2,000 Hydration: Adequate Estimated blood loss (mL): 50 Urine output (mL): 1,200 Blood Products used (#): none Blood Pressure: 136/81 SaO2: 94 Pulse Rate: 102 Airway Patency: Patent Respiratory Rate: 22 Temperature: 97.8 F Patient is:: Drowsy and Stable Stable to PACU at:: 14:30
[2024-07-20 14:43] LABS: Appearance,Urine/Cath CLEAR (Clear); Bilirubin,Cath Negative (Negative); Blood, Urine/Cath Negative (Negative); Color,Urine/Cath YELLOW (Yellow); Glucose,Urine/Cath (UA) Negative (Negative); Ketones,Urine/Cath Negative (Negative); Leukocyte Esterase,Cath Negative (Negative); Nitrate,Cath Negative (Negative); Protein,Urine/Cath Negative (Negative); Urobilinogen,Cath 0.2 EU/dl (0.2)
[2024-07-20 15:34] LABS: Bacteria,Urine/Cath TRACE /lpf; RBC,Urine/Cath Occasional # /hpf (0-3); Squamous Epithelial Ur./Cath Occasional #/hpf (0-5); WBC,Urine/Cath Occasional #/hpf (0-3)
[2024-07-21 08:16] LABS: RA Latex Turbid. <10.0 IU/mL (<14.0)
--- NOTE | 2024-07-21 08:23 | P.PNANES_ITS ---
[facility] Anesthesia Record Part II Anesthesia Record Part II Discharge Time: 15:00 Destination: Surgical Day Care (OP Surgery) PACU nurse assessment reviewed?: Yes Patient Condition:: Good Anesthesia Complications:: None Swallowing reflex intact?: Yes Airway Patency: Patent Cyanosis?: No Blood Pressure: 123/78 SaO2: 95 Respiratory Rate: 16 Pulse Rate: 101 Temperature: 98 F Mental Status: Alert & Oriented Pain level:: 0 Nausea and/or vomitting:: None Intake, IV Amount: 0 Hydration: Adequate
[2024-07-21 08:24] VITALS: BP 123/78; PULSE 101; RESP 16; TEMP 36.6; O2SAT 95
[2024-07-21 19:32] LABS: Antinuclear Antibodies, IFA Negative (.)
== END 2024-07-20 15:27 | disposition home or self-care (01) ==
PROVIDERS: PCP Nurse Practitioner Family; Visit Provider Podiatrist
PROC: (CPT 28297; principal; 2024-07-20 08:30)
DX: M20.41 Other hammer toe(s) (acquired), right foot (principal); M20.11 Hallux valgus (acquired), right foot; M79.671 Pain in right foot; M85.89 Other specified disorders of bone density and structure, multiple sites; M19.071 Primary osteoarthritis, right ankle and foot; M77.41 Metatarsalgia, right foot; E03.9 Hypothyroidism, unspecified; E66.811 Obesity, class 1; Z68.30 Body mass index [BMI] 30.0-30.9, adult; Z87.891 Personal history of nicotine dependence; Z79.899 Other long term (current) drug therapy; Z79.890 Hormone replacement therapy; Z79.85 Long-term (current) use of injectable non-insulin antidiabetic drugs; M20.60 Acquired deformities of toe(s), unspecified, unspecified foot
CPT/HCPCS: 20900; 26476 ×3; 28122 ×4; 28124; 28270 ×4; 28285 ×3; 28297; 28313; 28645; 28735; 28750; 51702; 73620; 73630; 76000; 81001; 84550; 85651; 86038; 86431; 96374; C1713; C1776; J1100; J2250; J2405; J2704; J3010; J3372; J7120; Q4173

== ENCOUNTER 2024-08-11 14:22 | Outpatient (CLI) | payer BC, SELFPAY ==
--- OUTSIDE RECORDS SUMMARY | 2024-08-11 14:25 | XMS_ITS | Encounter Summary ---
Author Organization [facility] Address [address] [id number] Care Team Providers Care Woods Overseer Name Role Phone Liya Pacheco APRN Primary Care Provider [phone] Reason for Visit * Reason Comments Med Refill Encounter Details Date Type Department Care Team (Late st Contact Info) Description 05/20/2023 Refill Family and Community Medicine [address] [place] [address] Liya Pacheco APRN [address] [place] [address] Social History Tobacco Use Types Packs/Day Years Used Date Smoking Tobacco: Former Cigarettes 0.5 20 0 04/1992 - 04/2012 Passive Smoke Exposure: Past Smokeless Tobacco: Never PHQ-2 Answer Date Recorded Patient Health Questionnaire-2 Score 0 01/20/2023 PHQ-2A Answer Date Recorded Patient Health Questionnaire-2 Score 0 01/20/2023 Comments Unknown Sex and Gender Information Value Date Recorded Sex Assigned at Not on file Legal Sex Female 8:23 PM EDT Gender Identity Not on file Sexual Orientation Not on file documented as of this encounter Miscellaneous Notes * Telephone Encounter - Marlene Suarez - 05/21/2023 2:07 PM EDT Per Marie she does not need a refill at this time. documented in this encounter Plan of Treatment Not on file documented as of this encounter Visit Diagnoses Not on filedocumented in this encounter Additional Health Concerns Assessment Noted Time A fall risk assessment has been complete d for the patient 04/22/2022 11:06 AM EST A Body Mass Index follow-up plan has been documented for the patient 01/20/2023 10:23 AM EST documented as of this encounter Care Teams Woods Overseer Relationship Specialty Start Date End Date Liya Pacheco APRN [address] [place] [address] PCP - General 06/29/20 documented as of this encounter
--- OUTSIDE RECORDS SUMMARY | 2024-08-11 14:25 | XMS_ITS | Encounter Summary ---
Author Organization [facility] Address [address] [place] [address] Care Team Providers Care Tufting Machine Operator Single Needle Name Role Phone Samantha Harding APRN Primary Care Provider [phone] Encounter Details Date Type Department Care Team (Late st Contact Info) Description 04/22/2022 Outside Procedure External Location [address] [place] [address] Samantha Harding APRN [address] [place] [phone] Social History Tobacco Use Types Packs/Day Years Used Date Smoking Tobacco: Former Cigarettes 0.5 20 0 04/1992 - 04/2012 Smokeless Tobacco: Never PHQ-2 Answer Date Recorded Patient Health Questionnaire-2 Score 0 04/22/2022 Comments Unknown Sex and Gender Information Value Date Recorded Sex Assigned at Not on file Legal Sex Female 8:23 PM EDT Gender Identity Not on file Sexual Orientation Not on file COVID-19 Exposure Response Date Recorded In the last 10 days, have yo u been in contact with someone who was confirmed or suspected to have Coronavirus/COVID-19? No / Unsure 04/22/2022 10:52 AM EST documented as of this encounter Functional Status * Over the past 2 weeks, how often have you been bothered by any of the following problems? Question Answer Date of Assessment Author Little interest or pleasure in doing things Not at all 04/22/2022 10:59 AM Marlene Shelton Feeling down, depressed, or hopeless Not at all 04/22/2022 10:59 AM Marlene Shelton Patient Health Questionnaire -2 Score 0 04/22/2022 10:59 AM Marlene Shelton * Calculated C-SSRS Risk Score (Lifetime/Recent) Answer Date of Assessment Author No Risk Indicated 04/22/2022 11:06 AM Marlene Mantilla * Question Answer Date of Assessment Author 1. Wish to be (Past 1 Month) No 023 11:06 AM Marlene Shelton 2. Non-Specific Active Suici el Thoughts (Past 1 Month) No 04/22/2022 11:06 AM Erum Shelton 6. Suicidal Behavior (Lifetime) No 11:06 AM Marlene Shelton documented as of this encounter Plan of Treatment Not on file documented as of this encounter Procedures Procedure Name Priority Date/Time Associated Diagnosis Comments MAMMOGRAPHY BREAST POST BIOPSY CLIP BILATERAL 04/22/2022 10:06 AM EST documented in this encounter Results * Mammography Breast Post Biopsy Clip Bilateral (04/22/2022 10:06 AM EST) Anatomical Region Laterality Modality Breast Bilateral Mammography 04/22/2022 10:0 6 AM EST Narrative 04/22/2022 10:57 [place] [address] Name: JARED BRUNER Exam Date: 04/22/2022 : 1970 Age 51 Gender: F Physician: SAMANTHA HARDING Facility: [facility] Facility HSV: Outpatient Exam: DIEGO DIAG MAMMO W/CAD BILAT MAMMOGRAM DIAGNOSTIC BILATERAL WITH TOMOSYNTHESIS HISTORY: Six-month follow-up left breast COMPARISON: December 21, 2020 and August 29, 2021 FINDINGS: Standard views were obtained. There are scattered fibroglandular densities. Stable appearance to asymmetric density in the left breast. Six-month follow-up again recommended to assess for stability. No suspicious lesions in the right breast. IMPRESSION: BI-RADS 3: PROBABLY BENIGN RECOMMENDATION: 6 MONTH FOLLOWUP CAD was utilized during interpretation. The patient will be sent a letter from the mammography department with their mammography findings. Dictated By: NYDIA VALLE Transcribed By: Nydia Valle Transcribed On: 04/22/2022 10:46 AM Electronically signed by: NYDIA VALLE 04/22/2022 Thank you for referring JARED BRUNER to [facility]. Legally authenticated by POPE NYDIA Munoz 2022-04-22 10:46:45 Procedure Note Provider, [facility] - 04/22/2022 [place] [address] Name: JARED BRUNER Exam Date: 04/22/2022 : 1970 Age 51 Gender: F Physician: SAMANTHA HADRING Facility: [facility] Facility HSV: Outpatient Exam: DIEGO DIAG MAMMO W/CAD BILAT MAMMOGRAM DIAGNOSTIC BILATERAL WITH TOMOSYNTHESIS HISTORY: Six-month follow-up left breast COMPARISON: December 21, 2020 and August 29, 2021 FINDINGS: Standard views were obtained. There are scatteredfibroglandular densities. Stable appearance to asymmetric density in the left breast. Six-month follow-up again recommended to assess for stability. Nosuspicious lesions in the right breast. IMPRESSION: BI-RADS 3: PROBABLY BENIGN RECOMMENDATION: 6 MONTH FOLLOWUP CAD was utilized during interpretation. The patient will be sent a letter from the mammography department withtheir mammography findings. Dictated By: NYDIA VALLE Transcribed By: Nydia Valle Transcribed On: 04/22/2022 10:46 AM Electronically signed by: NYDIA VALLE 04/22/2022 Thank you for referring JARED BRUNER to [facility]. Legally authenticated by POPE NYDIA Munoz 2022-04-22 10:46:45 us Samantha Harding IT COORDINATOR IMG BI PROCEDURES Final Res ult documented in this encounter Visit Diagnoses Not on filedocumented in this encounter Additional Health Concerns Assessment Noted Time A fall risk assessment has been complete d for the patient 04/22/2022 11:06 AM EST A Body Mass Index follow-up plan has been documented for the patient 04/22/2022 12:30 PM EST documented as of this encounter Care Teams Tufting Machine Operator Single Needle Relationship Specialty Start Date End Date Samantha Harding APRN [address] [place] [address] PCP - General 06/29/20 documented as of this encounter
--- OUTSIDE RECORDS SUMMARY | 2024-08-11 14:25 | XMS_ITS | Encounter Summary ---
Author Organization [facility] Address [address] [place] [address] Care Team Providers Care Disability Manager Name Role Phone Samantha Harding APRN Primary Care Provider [phone] Encounter Details Date Type Department Care Team ([facility] st Contact Info) Description 12/21/2020 Outside Procedure External Location [address] [place] [address] Samantha Harding APRN [address] [place] [phone] Social History Tobacco Use Types Packs/Day Years Used Date Smoking Tobacco: Former Cigarettes 0.5 20 Smokeless Tobacco: Never PHQ-2 Answer Date Recorded Patient Health Questionnaire-2 Score 0 12/12/2020 Comments Unknown Sex and Gender Information Value Date Recorded Sex Assigned at Not on file Legal Sex Female 8:23 PM EDT Gender Identity Not on file Sexual Orientation Not on file COVID-19 Exposure Response Date Recorded In the last month, have you been in contact with someone who was confirmed or suspected to have Coronavirus / COVID-19? Unable to assess 12/12/2020 7:39 AM EDT documented as of this encounter Plan of Treatment Not on file documented as of this encounter Procedures Procedure Name Priority Date/Time Associated Diagnosis Comments MAMMOGRAPHY BREAST SCREENING TOMOSYNTHESIS BILATERAL 12/21/2020 11:35 AM EDT documented in this encounter Results * Mammography Breast Screening Tomosynthesis Bilateral (12/21/2020 11:35 AM EDT) Anatomical Region Laterality Modality Breast Bilateral Mammography 12/21/2020 11:3 5 AM EDT Narrative 12/21/2020 7:21 [place] [address] Name: JARED BRUNER Exam Date: 12/21/2020 : 1970 Age 50 Gender: F Physician: SAMANTHA HARDING Facility: [facility] Facility HSV: Outpatient Exam: DIEGO SCRN MAMMO W/CAD BILAT Bilateral digital screening mammogram with CAD and with breast tomosynthesis Findings: Comparison dates are 04/21/19 and 08/24/17. Tissue is largely fatty. There are scattered residual fibroglandular elements, greatest on the left. There is a vague density in the central left breast which may have been faintly present in 2019 although not identifiable in 2017. There are no dominant densities on the right. There have been no other appreciable interval changes. Impression: New left breast density for which additional views are recommended to include CC and MLO coned views and a straight lateral view. Ultrasound may also be needed. BI-RADS 0, assessment incomplete. Needs additional imaging evaluation. Recommendation is for left breast diagnostic mammogram and possible ultrasound. This patient will be sent a letter from the mammography department with their mammography results. Dictated By: GIOVANI WITT Transcribed By: stoney mo Transcribed On: 12/21/2020 12:21 PM Electronically signed by: GIOVANI WITT 12/21/2020 Thank you for referring JARED BRUNER to [facility]. Legally authenticated by MIRYAM MATUTE 2020-12-21 19:06:53 Procedure Note Provider, Generic [facility] - 12/21/[address] [address] Name: JARED BRUNER Exam Date: 12/21/2020 : 1970 Age 50 Gender: F Physician: SAMANTHA HARDING Facility: [facility] Facility HSV: Outpatient Exam: DIEGO SCRN MAMMO W/CAD BILAT Bilateral digital screening mammogram with CAD and with breasttomosynthesis Findings: Comparison dates are 04/21/19 and 08/24/17. Tissue is largely fatty. There are scattered residual fibroglandular elements, greatest onthe left. There is a vague density in the central left breast which may havebeen faintly present in 2020 although not identifiable in 2018. There are no dominant densities on the right. There have been no other appreciable interval changes. Impression: New left breast density for which additional views arerecommended to include CC and MLO coned views and a straight lateral view. Ultrasoundmay also be needed. BI-RADS 0, assessment incomplete. Needs additional imaging evaluation. Recommendation is for left breast diagnostic mammogram and possible ultrasound. This patient will be sent a letter from the mammography department withtheir mammography results. Dictated By: GIOVANI WITT Transcribed By: stoney mo Transcribed On: 12/21/2020 12:21 PM Electronically signed by: GIOVANI WITT 12/21/2020 Thank you for referring ZOHREHFAINAJARED to [facility]. Legally authenticated by MIRYAM MATUTE 2020-12-21 19:06:53 us Samantha Harding APRN IMG BI PROCEDURES Final Res ult documented in this encounter Visit Diagnoses Not on filedocumented in this encounter Care Teams Disability Manager Relationship Specialty Start Date End Date Samantha Harding APRN [address] [place] [phone] PCP - General 06/29/20 documented as of this encounter
--- OUTSIDE RECORDS SUMMARY | 2024-08-11 14:25 | XMS_ITS | Clinical Summary ---
Author Organization [facility] Address [facility] [place] [address] Care Team Providers Care First Front Ventilator Name Role Phone Unavailable Primary Care Provider Unavailabl e Source Comments This information has been disclosed to you from confidential records protectedfrom disclosure by state law. You shall make no further disclosure of thisinformation without the specific, written, and informed release of theindividual to whom it pertains, or as otherwise permitted by law. A generalauthorization for the release of medical or other information is not sufficientfor the purposes of therelease of HIV test results or diagnoses. [id number] Social History Tobacco Use Types Packs/Day Years Used Date Smoking Tobacco: Never Assessed Comments Unknown Sex and Gender Information Value Date Recorded Sex Assigned at Not on file Legal Sex Female 3:09 PM EST Gender Identity Not on file Sexual Orientation Not on file Plan of Treatment Not on file
--- OUTSIDE RECORDS SUMMARY | 2024-08-11 14:25 | XMS_ITS | Encounter Summary ---
Author Organization [facility] Address [address] [place] [address] Care Team Providers Care Room Inspector Name Role Phone Samantha Harding APRN Primary Care Provider [phone] Encounter Details Date Type Department Care Team ([facility] st Contact Info) Description 12/31/2020 Outside Procedure External Location [address] [place] [address] Samantha Harding APRN [address] [place] [phone] Social History Tobacco Use Types Packs/Day Years [...] Procedure Name Priority Date/Time Associated Diagnosis Comments US BREAST LIMITED LEFT 12/31/2020 3:14 PM EST documented in this encounter Results * US Breast Limited Left (12/31/2020 3:14 PM EST) Anatomical Region Laterality Modality Breast Left Ultrasound 12/31/2020 3:14 PM EST Narrative 12/31/2020 5:54 [place] [address] Name: JARED BRUNER Exam Date: 12/31/2020 : 1970 Age 50 Gender: F Physician: SAMANTHA HARDING Facility: [facility] Facility HSV: Outpatient Exam: US BREAST LTD LT LEFT BREAST ULTRASOUND HISTORY: Abnormal mammogram. FINDINGS: No cystic or solid mass is present. Echotexture is unremarkable. IMPRESSION: No discrete mass. BI RAD-3: PROBABLY BENIGN RECOMMENDATION: Short-term mammographic follow-up of left breast in six months. This patient will be sent a letter from the mammography department with their mammography results. Dictated By: TIM MARSHALL Transcribed By: stoney mo Transcribed On: 12/31/2020 4:37 PM Electronically signed by: TIM MARSHALL 12/31/2020 Thank you [facility] referring [facility]. Legally authenticated by JOANNA SPARKS 2020-12-31 17:42:01 Procedure Note Provider, Elliot Allison - 12/31/[address] [place] [address] Name: JARED BRUNER Exam Date: 12/31/2020 : 1970 Age 50 Gender: F Physician: SAMANTHA HARDING Facility: [facility] Facility HSV: Outpatient Exam: US BREAST LTD LT LEFT BREAST ULTRASOUND HISTORY: Abnormal mammogram. FINDINGS: No cystic or solid mass is present. Echotexture isunremarkable. IMPRESSION: No discrete mass. BI RAD-3: PROBABLY BENIGN RECOMMENDATION: Short-term mammographic follow-up of left breast in six months. This patient will be sent a letter from the mammography department withtheir mammography results. Dictated By: TIM MARSHALL Transcribed By: stoney mo Transcribed On: 12/31/2020 4:37 PM Electronically signed by: TIM MARSHALL 12/31/2020 Thank you for referring ZOHREHMIGUELITON to [facility]. Legally authenticated by JOANNA SPARKS 2020-12-31 17:42:01 us Samantha Harding APRN IMG BI PROCEDURES Final Res ult documented in this encounter Visit Diagnoses Not on filedocumented in this encounter Care Teams Room Inspector Relationship Specialty Start Date End Date Samantha Harding APRN [address] [place] [phone] PCP - General 06/29/20 documented as of this encounter
--- OUTSIDE RECORDS SUMMARY | 2024-08-11 14:25 | XMS_ITS | Clinical Summary ---
Author Organization [facility] Address [address] [place] [address] Care Team Providers Care Aluminum Molding Machine Operator Name Role Phone Samantha Harding APRN Primary Care Provider [phone] Allergies No known active allergies Medications methylphenidate (Ritalin) 20 MG tablet Take 1 tablet (20 mg) by mouth 3 (three) times a day. 3 Active busPIRone (Buspar) 10 MG tablet TAKE ONE TABLET BY MOUTH THREE TIMES A DAY 270 tablet 2 3 Active cetirizine (ZyrTEC) 10 MG tablet Take 1 tablet (10 mg) by mouth 1 (one) time each day. Active Semaglutide-Weigh t Management 2.4 MG/0.75ML solution auto-injector 2.4 mg. 4 Active gabapentin (Neurontin) 100 MG capsule Take 1 capsule (100 mg) by mouth 3 (three) times a day. 4 Active ergocalciferol 1.25 MG (60643 UT) capsule Take 1 capsule (50,000 Units) by mouth 1 (one) time per week. 4 Active HYDROcodone-aceta minophen (Marshallberg) 7.5-325 MG tablet Take 1 tablet (7.5 mg of hydrocodone) by mouth every 6 (six) hours if needed for moderate pain. 4 Active ibuprofen 800 MG tablet Take 1 tablet (800 mg) by mouth every 6 (six) hours if needed. 4 Active escitalopram (Lexapro) 20 MG tablet Take 1 tablet (20 mg) by mouth 1 (one) time each day. 90 tablet 3 4 Active levothyroxine (Synthroid, Levoxyl) 125 MCG tabletIndications :Type 2 diabetes mellitus with hyperglycemia, without long-term current use of insulin (CMS/HCC) Take 1 tablet (125 mcg) by mouth 1 (one) time each day. 90 tablet 3 4 12/30/19 25 Active losartan-hydroCHL OROthiazide (Hyzaar) 100-12.5 MG tabletIndications :Benign essential hypertension Take 1 tablet by mouth 1 (one) time each day. 90 tablet 3 4 Active Active Problems Problem Noted Date Diagnosed Date Type 2 diabetes mellitus wit h hyperglycemia, without long-term current use of insulin 03/13/2021 Abdominal pain, chronic, left lower quadrant 11/2019 Perioral dermatitis 12/27/2019 Abnormal kidney function study 12/09/2019 Anxiety and depression 07/23/2017 Benign essential hypertension 08/24/2015 Hypothyroidism 05/13/2014 Obesity 05/13/2014 Immunizations Immunization Administration Dates Next Due MyScreen COVID-19 Vaccine (Blue Cap) 18+ 04/28/19 21 Moderna Covid-19 Vaccine 12y +, Anibal Protein, Preservative free 12/31/2022 Tdap 01/20/2023 Zoster, Recombinant 01/20/2023 Social History Tobacco Use Types Packs/Day Years Used Date Smoking Tobacco: Former Cigarettes 0.5 20 0 04/1992 - 04/2012 Passive Smoke Exposure: Past Smokeless Tobacco: Never Tobacco Cessation:Counseling Given: Not Answered Humiliation, Afraid, Rape, and Kick questionnair e Answer Date Recorded Within the last year, have y ou been afraid of your partner or ex-partner? No 09/09/2023 Within the last year, have y ou been humiliated or emotionally abused in other ways by your partner or ex-partner? No Within the last year, have y ou been kicked, hit, slapped, or otherwise physically hurt by your partner or ex-partner? No 09/09/2023 Within the last year, have y ou been raped or forced to have any kind of sexual activity by your partner or ex-partner? No 09/09/2023 PHQ-2 Answer Date Recorded Patient Health Questionnaire-2 Score 0 09/09/2023 Hunger Vital Sign Answer Date Recorded Within the past 12 months, y ou worried that your food would run out before you got the money to buy more. Never true 09/09/19 Within the past 12 months, t he food you bought just didn't last and you didn't have money to get more. Never true 09/09/2023 PRAPARE - Transportation Answer Date Re corded In the past 12 months, has l ack of transportation kept you from medical appointments or from getting medications? No 08/17 In the past 12 months, has l ack of transportation kept you from meetings, work, or from getting things needed for daily living? No 09/09/2023 Housing Stability Vital Sign Answer Yoshi e Recorded In the last 12 months, was t here a time when you were not able to pay the mortgage or rent on time? No 09/09/2023 In the last 12 months, how many places have you lived? 1 09/09/2023 In the last 12 months, was t here a time when you did not have a steady place to sleep or slept in a jail (including now)? No 09/09/2023 Utilities Answer Date Recorded In the past 12 months has th e electric, gas, oil, or water company threatened to shut off services in your home? No 09/09/2023 PHQ-2A Answer Date Recorded Patient Health Questionnaire-2 Score 0 01/20/2023 Comments Unknown Sex and Gender Information Value Date Recorded Sex Assigned at Not on file Legal Sex Female 8:23 PM EDT Gender Identity Not on file Sexual Orientation Not on file Last Filed Vital Signs Vital Sign Reading Time Taken Comments Blood Pressure 124/82 09/09/2023 8:47 AM EDT Pulse 82 09/09/2023 8:47 AM EDT Temperature 37.1 C (98.8 F) 06/16/2022 9:39 AM EDT Respiratory Rate 18 03/13/2021 9:49 AM EST Oxygen Saturation 99% 09/09/2023 8:47 AM EDT Inhaled Oxygen Concentration - - Weight 97.5 kg (215 lb) 09/09/2023 8:47 AM EDT Height 170.2 cm (5' 7 ) 09/09/2023 8:47 AM EDT Body Mass Index 33.67 09/09/2023 8:47 AM EDT Plan of Treatment Health Maintenance Due Date Last Done Comments [facility]-HIV Screening 1970 [facility]-Hepatitis C Screening 1970 [facility]-Infant/Child/Adol SDOH Screenings 1970 Diabetes: Dental Exam 09/03/1981 [facility]-Hepatitis B Vaccines (1 of 3 - 19+ 3-dose series) 09/03/1990 [facility]-Pneumococcal Vaccine: 50+ Years (1 of 2 - PCV) 09/03/1990 CT Colonography 09/03/2016 Colonoscopy 09/03/2016 FIT-DNA 09/03/2016 FIT 09/03/2016 FOBT 09/03/2016 Sigmoidoscopy 09/03/2016 [facility]-Colorectal Cancer Screening 09/03/2016 [facility]-Diabetes: Hemoglobin A1C 10/20/202208/2022, 04/02/2021, 02/28/2021, Additional history exists [facility]-Zoster Vaccines (2 of 2) 03/17/2023 01/20/2023 [id number] Vaccine ( season) 2023 12/31/2022, 04/27/2020 [facility]-Pap Smear 12/13/2023 12/12/2020, 060 08/2017, 01/24/1992 [facility]- SDOH Screenings 03/11/2024 [facility]-Adult SDOH Screenings 03/11/2024 09/09/2023 [facility]-Depression Screening 09/08/2024 09/09/2023 [facility]-Influenza Vaccine (Season Ended) 2024 [facility]-Breast Cancer Screening 07/07/2025 07/08/2023, 1 02/21/2020 [facility]-Cervical Cancer Screening 12/12/2025 [facility]-HPV/Cotest 12/12/2025 12/12/2020, 060 08/2017, 01/24/1992 [facility]-DTaP,Tdap,and Td Vaccines (2 - Td or Tdap) 01/20/2033 01/20/2023 [facility]-Obesity Intervention Completed 024, 06/30/2023, 01/20/2023, Additional history exists HPV Vaccines Aged Out No longer eligi ble based on patient's age to complete this topic [facility]-HIB Vaccines Aged Out No longer e ligible based on patient's age to complete this topic [facility]-Hepatitis A Vaccines Aged Out No longer eligible based on patient's age to complete this topic [facility]-IPV Vaccines Aged Out No longer e ligible based on patient's age to complete this topic [facility]-Rotavirus Vaccines Aged Out No lo nger eligible based on patient's age to complete this topic Procedures Procedure Name Priority Date/Time Associated Diagnosis Comments MAMMOGRAPHY BREAST SCREENING TOMOSYNTHESIS BILATERAL 07/08/2023 9:06 AM EDT HEMOGLOBIN A1C Routine 04/22/2022 11:29 AM EST Annual physical exam PAP TEST - CYTOLOGY Routine 12/12/2020 1 2:45 PM EDT Pap test, as part of routine gynecological examination from Last 3 Months or Most Recently Relevant to Health Maintenance Results * Mammography Breast Screening Tomosynthesis Bilateral (07/08/2023 9:06 AM EDT) Anatomical Region Laterality Modality Breast Bilateral Mammography 07/08/2023 9:06 AM EDT Narrative 07/08/2023 3:33 [place] [address] Name: JARED BRUNER Exam Date: 07/08/2023 : 1970 Age 52 years Gender: F Physician: SAMANTHA HARDING Facility: [facility] Facility HSV: Outpatient Exam: DIEGO SCRN MAMMO W/CAD BILAT MAMMOGRAM SCREENING BILATERAL HISTORY: Routine screening exam COMPARISON: April 22, 2022 TECHNIQUE: Standard digital 2-D views with 3-D tomosynthesis DENSITY: There are scattered areas of fibroglandular density FINDINGS: Benign calcifications. Scattered areas of focal asymmetry are noted. No new suspicious mass, suspicious calcifications or architectural distortion is present. IMPRESSION: No mammographic evidence of malignancy BI-RADS 2: Benign finding RECOMMENDATION: Annual mammography CAD was utilized during interpretation. The patient will be sent a letter from the mammography department with their mammography results. Dictated By: William García Transcribed By: William Welsh Transcribed On: 07/08/2023 3:23 PM Electronically signed by: William García 07/08/2023 Thank you for referring JARED BRUNER to [facility]. Legally authenticated by SHAMIKA CROWELL 2023-07-08 15:23:10 Procedure Note Provider, [facility] - 07/08/2023 [place] [address] Name: JARED BRUNER Exam Date: 07/08/2023 : 1970 Age 52 years Gender: F Physician: SAMANTHA HARDING Facility: [facility] Facility HSV: Outpatient Exam: DIEGO SCRN MAMMO W/CAD BILAT MAMMOGRAM SCREENING BILATERAL HISTORY: Routine screening exam COMPARISON: April 22, 2022 TECHNIQUE: Standard digital 2-D views with 3-D tomosynthesis DENSITY: There are scattered areas of fibroglandular density FINDINGS: Benign calcifications. Scattered areas of focal asymmetry arenoted. No new suspicious mass, suspicious calcifications or architecturaldistortion is present. IMPRESSION: No mammographic evidence of malignancy BI-RADS 2: Benign finding RECOMMENDATION: Annual mammography CAD was utilized during interpretation. The patient will be sent a letter from the mammography department withtheir mammography results. Dictated By: William García Transcribed By: William Welsh Transcribed On: 07/08/2023 3:23 PM Electronically signed by: William García 07/08/2023 Thank you for referring JARED BRUNER to [facility]. Legally authenticated by SHAMIKA CROWELL 2023-07-08 15:23:10 us Samantha Harding GALLERY MANAGER IMG BI PROCEDURES Final Res ult * Hemoglobin A1c (04/22/2022 11:29 AM EST) Hemoglobin A1c 5.3 <5.7 % 04/22/2022 7:12 PM EST [facility] Blood Venous blood specimen / Unknown Venipuncture / Unknown 04/22/2022 11:29 AM EST 04/22/2022 11:32 AM EST Narrative [facility] - 04/22/2022 7:12 PM EST HA1C Interpretive Data: Diagnosis of Diabetes: Diabetic > or = 6.5% Pre-diabetic 5.7 to 6.4% Non-diabetic < or = 5.6% Glycemic Targets for Type I and Type II Diabetics: Non- Adults <7.0% Adults <6.0% Children and Adolescents <7.5% Source: [place] [employer]. Standards of medical care in diabetes,2017. Diabetes Care.2017:40 (suppl 1):S1-S135. HbA1c assay performed by an ion-exchange chromatography method that is certified traceable to the DCCT. us Samantha Harding APRN LAB BLOOD ORDERABLES Final Result [facility] [address] [place] [address] * Pap smear (12/12/2020 12:45 PM EDT) Case Report Cytology Case: [id number] Authorizing Provider: Samantha Harding APRN Collected: 12/12/2020 1245 Ordering Location: [facility] Received: 12/12/2020 1245 [facility] First Screen: NAHOMI Trevino Specimen: ThinPrep Pap Test, Liquid-Based Cervical/Vaginal, CERVICAL/VAGINAL 12/18/2020 1:39 PM EDT [facility] Interpretation NEGATIVE FOR INTRAEPITHELIAL LESION OR MALIGNANCY 12/18/2020 1:39 PM EDT [facility] at 1339 EDT Specimen Adequacy Satisfactory for evaluation; endocervical/maldonado sformation zone component absent/insufficie nt. Slide scanned and imaged by [employer] with manual review of all selected crowell. 12/18/2020 1:39 PM EDT [facility] Cervical cytology is a screening test primarily for squamous cancers and precursors and has associated false negative and positive results. New technologies such as liquid based sampling may decrease but will not eliminate all false negative results. Regular screening and follow-up of unexplained clinical signs and symptoms are recommended to minimize false negative results. Please see the ASCCP website (www.asccp.org)fo r followup recommendations. If HPV testing was requested, correlation with the results is suggested (please call Microbiology at [phone] for results). 12/18/2020 1:39 PM EDT [facility] Menstrual Status Post-Menopausal 03/2020 1:39 PM EDT [facility] Contraceptive History Not Applicable 12/18/2020 1:39 PM EDT [facility] Last Menstrual Period 08/22/2019 12/18/2020 1:39 PM EDT [facility] Screening Type Routine Screen 2020 1:39 PM EDT [facility] High Risk? No 12/18/2020 1:39 PM EDT [facility] HPV Testing Requested? No HPV Testing Requested 12/18/2020 1:39 PM EDT [facility] Previous Cancer History No 12/18/2020 1:39 PM EDT [facility] Swab Vaginal and cervical cytologic material / Unknown Non-blood Collection / Unknown 12/12/2020 12:45 PM EDT 12/12/2020 12:45 PM EDT Samantha Harding APRN LAB CYTOLOGY ORDERABLES Fin al Result Performing Organization Address City/State/[facility] Phone Number [facility] [address] [place] [phone] from Last 3 Months or Most Recently Relevant to Health Maintenance Insurance [employer] Care Teams Aluminum Molding Machine Operator Relationship Specialty Start Date End Date Samantha Harding APRN [address] [place] [address] PCP - General 06/29/20
--- OUTSIDE RECORDS SUMMARY | 2024-08-11 14:25 | XMS_ITS | Encounter Summary ---
Author Organization [facility] Address [address] [place] [address] Care Team Providers Care Therapeutic Activities Services Worker Name Role Phone Samantha Harding APRN Primary Care Provider [phone] Encounter Details Date Type Department Care Team ([facility] st Contact Info) Description 12/31/2020 Outside Procedure External Location [address] [place] [address] Samantha Harding APRN [address] [place] [id number] Social History Tobacco Use Types Packs/Day Years [...] Diagnosis Comments MAMMOGRAPHY BREAST POST BIOPSY CLIP LEFT 12/31/2020 3:14 PM EST documented in this encounter Results * Mammography Breast Post Biopsy Clip Left (12/31/2020 3:14 PM EST) Anatomical Region Laterality Modality Breast Left Mammography 12/31/2020 3:14 PM EST Narrative 12/31/2020 5:58 [place] [address] Name: JARED BRUNER Exam Date: 12/31/2020 : 1970 Age 50 Gender: F Physician: SAMANTHA HARDING Facility: [facility] Facility HSV: Outpatient Exam: DIEGO DIAG MAMMO W/CAD LT MAMMOGRAM DIAGNOSTIC LEFT TECHNIQUE: Spot digital 2-D views with 3-D tomosynthesis. HISTORY: Abnormal screening exam. COMPARISON: 04/21/2019 and 08/24/2017. DENSITY: There are scattered areas of fibroglandular density. FINDINGS: Vague density is seen in the retroareolar central left breast best seen on true lateral view. On the original CC view, the abnormality had an appearance more suggestive of lymph node. No discrete lesion was seen on ultrasound same day. IMPRESSION: Persistent vague density in the retroareolar left breast without sonographic correlate. Favor benign. BI RAD-3: PROBABLY BENIGN RECOMMENDATION: Short-term mammographic follow-up of left breast in six months. The patient will be sent a letter from the mammography department with their mammography results. Dictated By: TIM MARSHALL Transcribed By: stoney mo Transcribed On: 12/31/2020 4:45 PM Electronically signed by: TIM MARSHALL 12/31/2020 Thank you for referring JARED BRUNER to [facility]. Legally authenticated by JOANNA SPARKS 2020-12-31 17:47:30 Procedure Note Provider, [place] - 12/31/2020 [place] [id number] Name: JARED BRUNER Exam Date: 12/31/2020 : 1970 Age 50 Gender: F Physician: SAMANTHA HARDING Facility: [facility] Facility HSV: Outpatient Exam: DIEGO DIAG MAMMO W/CAD LT MAMMOGRAM DIAGNOSTIC LEFT TECHNIQUE: Spot digital 2-D views with 3-D tomosynthesis. HISTORY: Abnormal screening exam. COMPARISON: 04/21/2019 and 08/24/2017. DENSITY: There are scattered areas of fibroglandular density. FINDINGS: Vague density is seen in the retroareolar central left breastbest seen on true lateral view. On the original CC view, the abnormality hadan appearance more suggestive of lymph node. No discrete lesion was seenon ultrasound same day. IMPRESSION: Persistent vague density in the retroareolar left breastwithout sonographic correlate. Favor benign. BI RAD-3: PROBABLY BENIGN RECOMMENDATION: Short-term mammographic follow-up of left breast in six months. The patient will be sent a letter from the mammography department withtheir mammography results. Dictated By: TIM MARSHALL Transcribed By: stoney mo Transcribed On: 12/31/2020 4:45 PM Electronically signed by: TIM MARSHALL 12/31/2020 Thank you for referring JARED BRUNER to [facility]. Legally authenticated by JOANNA SPARKS 2020-12-31 17:47:30 Samantha Harding APRN IMG BI PROCEDURES Final Res ult documented in this encounter Visit Diagnoses Not on filedocumented in this encounter Care Teams Therapeutic Activities Services Worker Relationship Specialty Start Date End Date Samantha Harding APRN [address] [place] [phone] PCP - General 06/29/20 documented as of this encounter
--- OUTSIDE RECORDS SUMMARY | 2024-08-11 14:25 | XMS_ITS | Encounter Summary ---
Author Organization [facility] Address [address] [place] [address] Care Team Providers Care Clean Room Technician Name Role Phone Samantha Harding APRN Primary Care Provider [phone] Encounter Details Date Type Department Care Team (Late st Contact Info) Description 01/19/2023 Outside Procedure External Location [address] [place] [address] Samantha Harding APRN [address] [place] [id number] Social History Tobacco Use Types Packs/Day Years [...] on file documented as of this encounter Functional Status * Over the past 2 weeks, how often have you been bothered by any of the following problems? Question Answer Date of Assessment Author Little interest or pleasure in doing things Not at all 01/20/2023 9:19 AM Marlene Shelton Feeling down, depressed, or hopeless Not at all 01/20/2023 9:19 AM Marlene Shelton Patient Health Questionnaire -2 Score 0 01/20/2023 9:19 AM Marlene Shelton documented as of this encounter Plan of Treatment Not on file documented as of this encounter Procedures Procedure Name Priority Date/Time Associated Diagnosis Comments MAMMOGRAPHY BREAST POST BIOPSY CLIP LEFT 01/19/2023 10:39 AM EST documented in this encounter Results * Mammography Breast Post Biopsy Clip Left (01/19/2023 10:39 AM EST) Anatomical Region Laterality Modality Breast Left Mammography 01/19/2023 10:3 9 AM EST Narrative 01/19/2023 12:24 [place] [address] Name: JARED BRUNER Exam Date: 01/19/2023 : 1970 Age 52 Gender: F Physician: SAMANTHA HARDING Facility: [facility] Facility HSV: Outpatient Exam: DIEGO DIAG MAMMO W/CAD LT MAMMOGRAM DIAGNOSTIC LEFT WITH TOMOSYNTHESIS HISTORY: Six-month follow-up COMPARISON: August 29, 2021 FINDINGS: Standard views were obtained. There are scattered fibroglandular densities. Stable appearance to asymmetric density in the lower outer central left breast. This is unchanged dating back to December 31, 2020. Patient may resume annual screening. No mass, suspicious calcifications or architectural distortion is present. IMPRESSION: No mammographic evidence of malignancy. BI-RADS 2: Benign RECOMMENDATION: Annual mammography CAD was utilized during interpretation. The patient will be sent a letter from the mammography department with their mammography findings. Dictated By: NYDIA VALLE Transcribed By: Nydia Valle Transcribed On: 01/19/2023 12:09 PM Electronically signed by: NYDIA VALLE 01/19/2023 Thank you for referring ANKITBENIGNO JARED to [facility]. Legally authenticated by POPE NYDIA Munoz 2023-01-19 12:09:46 Procedure Note Provider, [facility] [place] - 01/19/2023 [place] [address] Name: JARED BRUNER Exam Date: 01/19/2023 : 1970 Age 52 Gender: F Physician: SAMANTHA HARDING Facility: [facility] Facility HSV: Outpatient Exam: DIEGO DIAG MAMMO W/CAD LT MAMMOGRAM DIAGNOSTIC LEFT WITH TOMOSYNTHESIS HISTORY: Six-month follow-up COMPARISON: August 29, 2021 FINDINGS: Standard views were obtained. There are scatteredfibroglandular densities. Stable appearance to asymmetric density in the lower outercentral left breast. This is unchanged dating back to December 31, 2020. Patientmay resume annual screening. No mass, suspicious calcifications orarchitectural distortion is present. IMPRESSION: No mammographic evidence of malignancy. BI-RADS 2: Benign RECOMMENDATION: Annual mammography CAD was utilized during interpretation. The patient will be sent a letter from the mammography department withtheir mammography findings. Dictated By: NYDIA VALLE Transcribed By: Nydia Valle Transcribed On: 01/19/2023 12:09 PM Electronically signed by: NYDIA VALLE 01/19/2023 Thank you for referring JARED BRUNER to [facility]. Legally authenticated by POPE NYDIA Munoz 2023-01-19 12:09:46 us Samantha Harding APRN IMG BI PROCEDURES Final Res ult documented in this encounter Visit Diagnoses Not on filedocumented in this encounter Additional Health Concerns Assessment Noted Time A fall risk assessment has been complete d for the patient 04/22/2022 11:06 AM EST A Body Mass Index follow-up plan has been documented for the patient 12/31/2022 1:25 PM EST documented as of this encounter Care Teams Clean Room Technician Relationship Specialty Start Date End Date Samantha Harding APRN [address] [place] [address] PCP - General 06/29/20 documented as of this encounter
--- OUTSIDE RECORDS SUMMARY | 2024-08-11 14:25 | XMS_ITS | Encounter Summary ---
Author Organization [facility] Address [address] [place] [address] Care Team Providers Care Cyberathlete Name Role Phone Samantha Harding APRN Primary Care Provider +1 [phone] Encounter Details Date Type Department Care Team (Late st Contact Info) Description 07/08/2023 Outside Procedure External Location [address] [place] [address] Samantha Harding APRN [address] [place] [phone] Social History Tobacco Use Types Packs/Day Years Used Date Smoking Tobacco: Former Cigarettes 0.5 20 0 04/1992 - 04/2012 Passive Smoke Exposure: Past Smokeless Tobacco: Never Humiliation, Afraid, Rape, and Kick questionnair e Answer Date Recorded Within the last year, have y ou been afraid of your partner or ex-partner? No 06/30/2023 Within the last year, have y ou been humiliated or emotionally abused in other ways by your partner or ex-partner? No Within the last year, have y ou been kicked, hit, slapped, or otherwise physically hurt by your partner or ex-partner? No 06/30/2023 Within the last year, have y ou been raped or forced to have any kind of sexual activity by your partner or ex-partner? No 06/30/2023 PHQ-2 Answer Date Recorded Patient Health Questionnaire-2 Score 0 06/30/2023 Hunger Vital Sign Answer Date Recorded Within the past 12 months, y ou worried that your food would run out before you got the money to buy more. Never true 06/30/19 24 Within the past 12 months, t he food you bought just didn't last and you didn't have money to get more. Never true 06/30/2023 PRAPARE - Transportation Answer Date Re corded In the past 12 months, has l ack of transportation kept you from medical appointments or from getting medications? No 06/16 In the past 12 months, has l ack of transportation kept you from meetings, work, or from getting things needed for daily living? No 06/30/2023 Housing Stability Vital Sign Answer Yoshi e Recorded In the last 12 months, was t here a time when you were not able to pay the mortgage or rent on time? No 06/30/2023 In the last 12 months, how many places have you lived? 1 06/30/2023 In the last 12 months, was t here a time when you did not have a steady place to sleep or slept in a senior living (including now)? No 06/30/2023 Utilities Answer Date Recorded In the past 12 months has th e electric, gas, oil, or water company threatened to shut off services in your home? No 06/30/2023 PHQ-2A Answer Date Recorded Patient Health Questionnaire-2 Score 0 01/20/2023 Comments Unknown Sex and Gender Information Value Date Recorded Sex Assigned at Not on file Legal Sex Female 8:23 PM EDT Gender Identity Not on file Sexual Orientation Not on file documented as of this encounter Plan of Treatment Not on file documented as of this encounter Procedures Procedure Name Priority Date/Time Associated Diagnosis Comments MAMMOGRAPHY BREAST SCREENING TOMOSYNTHESIS BILATERAL 07/08/2023 9:06 AM EDT documented in this encounter Results * Mammography Breast Screening Tomosynthesis Bilateral (07/08/2023 9:06 AM EDT) Anatomical Region Laterality Modality Breast Bilateral Mammography 07/08/2023 9:06 AM EDT Narrative 07/08/2023 3:33 [place] [address] Name: JARED BRUNER Exam Date: 07/08/2023 : 1970 Age 52 years Gender: F Physician: SAMANTHA HARDING Facility: [facility] Facility HSV: Outpatient Exam: DIEGO SCRN [...] Thank you for referring JARED BRUNER to [facility]. Legally authenticated by SHAMIKA CROWELL 2023-07-08 15:23:10 Procedure Note Provider, Generic [place] - 07/08/2023 [place] [address] Name: JARED BRUNER Exam Date: 07/08/2023 : 1970 Age 52 years Gender: F Physician: SAMANTHA HARDING Facility: [facility] Facility HSV: Outpatient Exam: DIEGO SCRN [...] William García 07/08/2023 Thank you for referring ANKITBENIGNOJARED to [facility]. Legally authenticated by SHAMIKA CROWELL 2023-07-08 15:23:10 us Samantha Harding APRN IMG BI PROCEDURES Final Res ult documented in this encounter Visit Diagnoses Not on filedocumented in this encounter Additional Health Concerns Assessment Noted Time A fall risk assessment has been complete d for the patient 04/22/2022 11:06 AM EST A Body Mass Index follow-up plan has been documented for the patient 06/30/2023 10:51 AM EDT documented as of this encounter Care Teams Cyberathlete Relationship Specialty Start Date End Date Samantha Harding APRN [address] [place] [phone] PCP - General 06/29/20 documented as of this encounter
--- OUTSIDE RECORDS SUMMARY | 2024-08-11 14:25 | XMS_ITS | Encounter Summary ---
Author Organization [facility] Address [address] [place] [address] Care Team Providers Care Health Services Information Specialist Name Role Phone Samantha Harding APRN Primary Care Provider +1 [phone] Encounter Details Date Type Department Care Team (Late st Contact Info) Description 08/29/2021 Outside Procedure External Location [address] [place] [address] Samantha Harding APRN [address] [place] [phone] Social History Tobacco Use Types Packs/Day Years [...] Comments MAMMOGRAPHY BREAST POST BIOPSY CLIP LEFT 08/29/2021 10:30 AM EDT documented in this encounter Results * Mammography Breast Post Biopsy Clip Left (08/29/2021 10:30 AM EDT) Anatomical Region Laterality Modality Breast Left Mammography 08/29/2021 10:3 0 AM EDT Narrative 08/29/2021 11:07 AM EDT [address] [address] Name: JARED BRUNER Exam Date: 08/29/2021 : 1970 Age 50 Gender: F Physician: SAMANTHA HARDING Facility: [facility] Facility HSV: Outpatient Exam: DIEGO DIAG MAMMO W/CAD LT MAMMOGRAM DIAGNOSTIC LEFT WITH TOMOSYNTHESIS HISTORY: Six-month follow-up nodule COMPARISON: December 31, 2020 FINDINGS: Standard views were obtained. There are scattered fibroglandular densities. Stable appearance to oval nodular density in the inferior central left breast measuring up to 1 cm. 6 month follow-up again recommended to assess for stability. IMPRESSION: BI-RADS 3: PROBABLY BENIGN RECOMMENDATION: 6 MONTH FOLLOWUP CAD was utilized during interpretation. The patient will be sent a letter from the mammography department with their mammography findings. Dictated By: Nydia Beal Transcribed By: Nydia Beal Transcribed On: 08/29/2021 10:56 AM Electronically signed by: Nydia Beal 08/29/2021 Thank you for referring JARED BRUNER to [facility]. Legally authenticated by POPE NYDIA Munoz 2021-08-29 10:56:49 Procedure Note Provider, Elliot [place] - 08/29/2021 [place] [address] Name: JARED BRUNER Exam Date: 08/29/2021 : 1970 Age 50 Gender: F Physician: SAMANTHA HARDING Facility: [facility] Facility HSV: Outpatient Exam: DIEGO DIAG MAMMO W/CAD LT MAMMOGRAM DIAGNOSTIC LEFT WITH TOMOSYNTHESIS HISTORY: Six-month follow-up nodule COMPARISON: December 31, 2020 FINDINGS: Standard views were obtained. There are scatteredfibroglandular densities. Stable appearance to oval nodular density in the inferiorcentral left breast measuring up to 1 cm. 6 month follow-up again recommended to assess for stability. IMPRESSION: BI-RADS 3: PROBABLY BENIGN RECOMMENDATION: 6 MONTH FOLLOWUP CAD was utilized during interpretation. The patient will be sent a letter from the mammography department withtheir mammography findings. Dictated By: Nydia Beal Transcribed By: Nydia Beal Transcribed On: 08/29/2021 10:56 AM Electronically signed by: Nydia Beal 08/29/2021 Thank you for referring JARED BRUNER to [facility]. Legally authenticated by POPE NYDIA Munoz 2021-08-29 10:56:49 us Samantha Harding APRN IMG BI PROCEDURES Final Res ult documented in this encounter Visit Diagnoses Not on filedocumented in this encounter Care Teams Health Services Information Specialist Relationship Specialty Start Date End Date Samantha Harding APRN [address] [place] [address] PCP - General 06/29/20 documented as of this encounter
== END 2024-08-11 23:59 | disposition home or self-care (01) ==
LOC: LAB.DROPOF 14:23
PROVIDERS: PCP Podiatrist; Visit Provider Podiatrist
DX: Z98.890 Other specified postprocedural states (principal)
CPT/HCPCS: 87070; 87106; 87205

== ENCOUNTER 2024-08-24 09:04 | Outpatient (CLI) | payer BC, SELFPAY ==
--- NOTE | 2024-08-24 09:06 | XR_ITS ---
FINAL REPORT CLINICAL HISTORY: s/p Right bunionectomy COMPARISON: 07/20/2024 FINDINGS: RIGHT FOOT 3 views of the right foot were obtained. Overlying cast has been removed. There is extensive hardware including sideplate and screws securing the 1st tarsometatarsal joint and 1st metatarsal phalangeal joint. Orthopedic roseanne are present in the 2nd and 3rd tarsometatarsal is. K-wires secure of the 2nd, 3rd, and 4th digital rays. There has been resection of the distal portions of the 2nd through 5th metatarsals. IMPRESSION: Stable postoperative changes with interval cast removal. Reviewed, Interpreted and Dictated by Akhil Huang MD Transcribed by Marlene Wilhelm Authenticated and [facility]
--- OUTSIDE RECORDS SUMMARY | 2024-08-24 09:09 | XMS_ITS | Encounter Summary ---
Author Organization [facility] Address [address] [place] [id number] Care Team Providers Care Director Of Public Health Name Role Phone Liya Pacheco APRN Primary Care Provider +1 [phone] Reason for Visit * Reason Comments Med Refill Encounter Details Date Type Department Care Team (Late st Contact Info) Description 05/20/2023 Refill Family and Community Medicine [address] [place] [address] Liya Pacheco APRN [address] [place] [address] Social History Tobacco Use Types [...] documented as of this encounter Care Teams Director Of Public Health Relationship Specialty Start Date End Date Liya Pacheco APRN [address] [place] [address] PCP - General 06/29/20 documented as of this encounter
--- OUTSIDE RECORDS SUMMARY | 2024-08-24 09:09 | XMS_ITS | Encounter Summary ---
Author Organization [facility] Address [address] [place] [address] Care Team Providers Care Temporary Receptionist Name Role Phone Samantha Harding APRN Primary Care Provider +1 [phone] Encounter Details Date Type Department Care Team ([facility] st Contact Info) Description 12/31/2020 Outside Procedure External Location [address] [place] [address] Samantha Harding APRN [address] [place] [address] Social History Tobacco Use Types Packs/Day Years [...] PM EST Narrative 12/31/2020 5:58 [place] [address] Name: JARED BRUNER Exam Date: 12/31/2020 : 1970 Age 50 Gender: F Physician: SAMANTHA HARDING Facility: [facility] Facility HSV: Outpatient Exam: DIEGO DIAG MAMMO [...] you for referring JARED BRUNER to [facility]. Legally authenticated by JOANNA SPARKS 2020-12-31 17:47:30 Procedure Note Provider, Generic [place] - 12/31/2020 [place] [id number] Name: JARED BRUNER Exam Date: 12/31/2020 : 1970 Age 50 Gender: F Physician: SAMANTHA HARDING Facility: [facility] Facility HSV: Outpatient Exam: DIEGO DIAG MAMMO [...] you for referring JARED BRUNER to [facility]. Legally authenticated by JOANNA SPARKS 2020-12-31 17:47:30 Samantha Harding APRN IMG BI PROCEDURES Final Res ult documented in this encounter Visit Diagnoses Not on filedocumented in this encounter Care Teams Temporary Receptionist Relationship Specialty Start Date End Date Samantha Harding APRN [address] [place] [address] PCP - General 06/29/20 documented as of this encounter
--- OUTSIDE RECORDS SUMMARY | 2024-08-24 09:09 | XMS_ITS | Encounter Summary ---
Author Organization [facility] Address [address] [place] [address] Care Team Providers Care Recoil [place] Winder Name Role Phone Samantha Harding APRN Primary Care Provider [phone] [phone] Encounter Details Date Type Department Care Team (Late st Contact Info) Description 04/22/2022 Outside Procedure External Location [address] [place] [address] Samantha Harding APRN [address] [place] [phone] Social History Tobacco Use Types Packs/Day Years [...] AM EST Narrative 04/22/2022 10:57 [place] [address] Name: JARED BRUNER Exam Date: 04/22/2022 : 1970 Age 51 Gender: F Physician: SAMANTHA HARDING Facility: [facility] Facility HSV: Outpatient Exam: DIEGO DIAG MAMMO [...] Thank you for referring JARED BRUNER to [facility]. Legally authenticated by POPE NYDIA Munoz 2022-04-22 10:46:45 Procedure Note Provider, [facility] - 04/22/2022 [place] [address] Name: JARED BRUNER Exam Date: 04/22/2022 : 1970 Age 51 Gender: F Physician: SAMANTHA HARDING Facility: [facility] Facility HSV: Outpatient Exam: DIEGO DIAG MAMMO [...] Thank you for referring JARED BRUNER to [facility]. Legally authenticated by POPE NYDIA Munoz 2022-04-22 10:46:45 us Samantha Harding RELIEF WORKER IMG BI PROCEDURES Final Res ult documented in this encounter Visit Diagnoses Not on filedocumented in this encounter Additional Health Concerns Assessment Noted Time A fall risk assessment has been complete d for the patient 04/22/2022 11:06 AM EST A Body Mass Index follow-up plan has been documented for the patient 04/22/2022 12:30 PM EST documented as of this encounter Care Teams Recoil [place] Winder Relationship Specialty Start Date End Date Samantha Harding APRN [address] [place] [address] PCP - General 06/29/20 documented as of this encounter
--- OUTSIDE RECORDS SUMMARY | 2024-08-24 09:09 | XMS_ITS | Encounter Summary ---
Author Organization [facility] Address [address] [place] [address] Care Team Providers Care Molder Machine Tender Name Role Phone Samantha Harding APRN Primary Care Provider +1 [phone] Encounter Details Date Type Department Care Team (Late st Contact Info) Description 01/19/2023 Outside Procedure External Location [address] [place] [address] Samantha Harding APRN [address] [place] [phone] Social History Tobacco Use Types Packs/Day Years [...] AM EST Narrative 01/19/2023 12:24 [place] [address] Name: JARED BRUNER Exam Date: 01/19/2023 : 1970 Age 52 Gender: F Physician: SAMANTHA HARDING Facility: [facility] Facility HSV: Outpatient Exam: DIEGO DIAG [...] Thank you for referring ANKITBENIGNO JARED to [facility]. Legally authenticated by POPE NYDIA Munoz 2023-01-19 12:09:46 Procedure Note Provider, Elliot [place] - 01/19/2023 [place] [address] Name: JARED BRUNER Exam Date: 01/19/2023 : 1970 Age 52 Gender: F Physician: SAMANTHA HARDING Facility: [facility] Facility HSV: Outpatient Exam: DIEGO DIAG [...] Thank you for referring JARED BRUNER to [facility]. Legally authenticated by POPE NYDIA Munoz 2023-01-19 [...] documented as of this encounter Care Teams Molder Machine Tender Relationship Specialty Start Date End Date Samantha Harding APRN [address] [place] [address] PCP - General 06/29/20 documented as of this encounter
--- OUTSIDE RECORDS SUMMARY | 2024-08-24 09:09 | XMS_ITS | Encounter Summary ---
Author Organization [facility] Address [address] [place] [address] Care Team Providers Care Program Manufacturing Leader Name Role Phone Samantha Harding APRN Primary Care Provider +1 [phone] Encounter Details Date Type Department Care Team (Late st Contact Info) Description 08/29/2021 Outside Procedure External Location [address] [place] [address] Samantha Harding APRN [address] [place] [address] Social History Tobacco Use Types Packs/Day Years [...] AM EDT Narrative 08/29/2021 11:07 AM EDT [address] [address] Name: JARED BRUNER Exam Date: 08/29/2021 : 1970 Age 50 Gender: F Physician: SAMANTHA HARDING Facility: [facility] Facility HSV: Outpatient Exam: DIEGO [...] Thank you for referring JARED BRUNER to [facility]. Legally authenticated by POPE NYDIA Munoz 2021-08-29 10:56:49 Procedure Note Provider, Elliot [place]clean - 08/29/2021 [place] [address] Name: JARED BRUNER Exam Date: 08/29/2021 : 1970 Age 50 Gender: F Physician: SAMANTHA HARDING Facility: [facility] Facility HSV: Outpatient Exam: DIEGO [...] Thank you for referring JARED BRUNER to [facility]. Legally authenticated by POPE NYDIA Munoz 2021-08-29 10:56:49 us Samantha Harding APRN IMG BI PROCEDURES Final Res ult documented in this encounter Visit Diagnoses Not on filedocumented in this encounter Care Teams Program Manufacturing Leader Relationship Specialty Start Date End Date Samantha Harding APRN [address] [place] [address] PCP - General 06/29/20 documented as of this encounter
--- OUTSIDE RECORDS SUMMARY | 2024-08-24 09:09 | XMS_ITS | Clinical Summary ---
Author Organization [facility] Address [address] [place] [address] Care Team Providers Care Assistant Infant Toddler Teacher Name Role Phone Samantha Harding APRN Primary Care Provider +1 [phone] Allergies No known active allergies Medications methylphenidate [...] a day. 4 Active ergocalciferol 1.25 MG (90725 UT) capsule Take 1 capsule (50,000 Units) by mouth 1 (one) time per week. 4 Active HYDROcodone-aceta minophen (Pacifica) 7.5-325 MG tablet Take 1 tablet (7.5 [...] 05/13/2014 Immunizations Immunization Administration Dates Next Due eBuddy COVID-19 Vaccine (Blue Cap) 18+ 04/28/19 21 [...] place to sleep or slept in a fdc (including now)? No 09/09/2023 Utilities Answer Date [...] [facility]-Zoster Vaccines (2 of 2) 03/17/2023 01/20/2023 DEX-[id number]-18 Vaccine (3 - 2023- season) 2023 12/31/2022, 04/27/2020 [facility]-Pap Smear 12/13/2023 12/12/2020, 060 08/2017, 01/24/1992 [facility]- SDOH Screenings 03/11/2024 [facility]-Adult SDOH Screenings 03/11/2024 09/09/2023 [facility]-Depression Screening 09/08/2024 09/09/2023 [facility]-Influenza Vaccine (#1) 2024 [facility]-Breast Cancer Screening 07/07/2025 07/08/2023, 1 [...] AM EDT Narrative 07/08/2023 3:33 [place] [address] Name: JARED BRUNER Exam Date: 07/08/2023 : 1970 Age 52 years Gender: F Physician: SAMANTHA HARDING Facility: [facility] Facility HSV: Outpatient Exam: DIEGO [...] Thank you for referring JARED BRUNER to [facility]. Legally authenticated by SHAMIKA CROWELL 2023-07-08 15:23:10 Procedure Note Provider, [facility] - 07/08/2023 [place] [address] Name: JARED BRUNER Exam Date: 07/08/2023 : 1970 Age 52 years Gender: F Physician: SAMANTHA HARDING Facility: [facility] Facility HSV: Outpatient Exam: DIEGO [...] Thank you for referring JARED BRUNER to [facility]. Legally authenticated by SHAMIKA CROWELL 2023-07-08 15:23:10 us Samantha Harding SALES SUPERINTENDENT IMG BI PROCEDURES Final Res ult * Hemoglobin A1c (04/22/2022 11:29 AM EST) Hemoglobin A1c 5.3 <5.7 % 04/22/2022 7:12 PM EST [facility] Blood Venous blood specimen / Unknown [...] Adults <6.0% Children and Adolescents <7.5% Source: [place] [employer]. Standards of medical care in diabetes,2017. Diabetes Care.2017:40 (suppl 1):S1-S135. HbA1c assay performed by an ion-exchange chromatography method that is certified traceable to the DCCT. us Samantha Harding APRN LAB BLOOD ORDERABLES Final Result [facility] [address] [place] [address] * Pap smear (12/12/2020 12:45 PM EDT) Case Report Cytology Case: [id number] Authorizing Provider: Samantha Harding APRN Collected: 12/12/2020 1245 Ordering Location: [facility] Received: 12/12/2020 1245 Medicine First Screen: NAHOMI Trevino Specimen: ThinPrep Pap Test, Liquid-Based Cervical/Vaginal, CERVICAL/VAGINAL 12/18/2020 1:39 PM EDT [facility] Interpretation NEGATIVE FOR INTRAEPITHELIAL LESION OR MALIGNANCY 12/18/2020 1:39 PM EDT [facility] at 1339 EDT Specimen Adequacy Satisfactory for evaluation; endocervical/maldonado sformation zone component absent/insufficie nt. Slide scanned and imaged by [employer] System with manual review of all selected crowell. 12/18/2020 1:39 PM EDT [facility] Cervical cytology is a screening test [...] results is suggested (please call Microbiology at [phone] for results). 12/18/2020 1:39 PM EDT [facility] Menstrual Status Post-Menopausal 03/2020 1:39 PM EDT [facility] Contraceptive History Not Applicable 12/18/2020 1:39 PM EDT [facility] Last Menstrual Period 08/22/2019 12/18/2020 1:39 PM EDT [facility] Screening Type Routine Screen 2020 1:39 PM EDT [facility] High Risk? No 12/18/2020 1:39 PM EDT [facility] HPV Testing Requested? No HPV Testing Requested 12/18/2020 1:39 PM EDT [facility] Previous Cancer History No 12/18/2020 1:39 PM EDT [facility] Swab Vaginal and cervical cytologic material / Unknown Non-blood Collection / Unknown 12/12/2020 12:45 PM EDT 12/12/2020 12:45 PM EDT Samantha Harding APRN LAB CYTOLOGY ORDERABLES Fin al Result Performing Organization Address City/State/[facility] Phone Number [facility] [address] [place] [phone] from Last 3 Months or Most Recently Relevant to Health Maintenance Insurance [employer] Care Teams Assistant Infant Toddler Teacher Relationship Specialty Start Date End Date Samantha Harding APRN [address] [place] [address] PCP - General 06/29/20
--- OUTSIDE RECORDS SUMMARY | 2024-08-24 09:09 | XMS_ITS | Encounter Summary ---
Author Organization [facility] Address [address] [place] [address] Care Team Providers Care Oil Well Engineer Name Role Phone Samantha Harding APRN Primary Care Provider +1 [phone] Encounter Details Date Type Department Care Team ([facility] st Contact Info) Description 12/21/2020 Outside Procedure External Location [address] [place] [address] Samantha Harding APRN [address] [place] [phone] Social History Tobacco Use Types Packs/Day Years [...] AM EDT Narrative 12/21/2020 7:21 [place] [address] Name: JARED BRUNER Exam Date: 12/21/2020 : 1970 Age 50 Gender: F Physician: SAMANTHA HARDING Facility: [facility] Facility HSV: Outpatient Exam: DIEGO SCRN MAMMO [...] for referring JARED BRUNER to [facility]. Legally authenticated by MIRYAM MATUTE 2020-12-21 19:06:53 Procedure Note Provider, Generic [place] - 12/21/[address] [address] Name: JARED BRUNER Exam Date: 12/21/2020 : 1970 Age 50 Gender: F Physician: SAMANTHA HARDING Facility: [facility] Facility HSV: Outpatient Exam: DIEGO SCRN MAMMO [...] 12/21/2020 Thank you for referring ZOHREHFAINAJARED to [facility]. Legally authenticated by MIRYAM MATUTE 2020-12-21 19:06:53 us Samantha Harding APRN IMG BI PROCEDURES Final Res ult documented in this encounter Visit Diagnoses Not on filedocumented in this encounter Care Teams Oil Well Engineer Relationship Specialty Start Date End Date Samantha Harding APRN [address] [place] [address] PCP - General 06/29/20 documented as of this encounter
--- OUTSIDE RECORDS SUMMARY | 2024-08-24 09:09 | XMS_ITS | Encounter Summary ---
Author Organization [facility] Address [address] [place] [address] Care Team Providers Care Security Escort Name Role Phone Samantha Harding APRN Primary Care Provider +1 [phone] Encounter Details Date Type Department Care Team ([facility] st Contact Info) Description 12/31/2020 Outside Procedure External Location [address] [place] [address] Samantha Harding APRN [address] [place] [address] Social History Tobacco Use Types Packs/Day Years [...] PM EST Narrative 12/31/2020 5:54 [place] [address] Name: JARED BRUNER Exam Date: 12/31/2020 : 1970 Age 50 Gender: F Physician: SAMANTHA HARDING Facility: [facility] Facility HSV: Outpatient Exam: US BREAST LTD [...] Thank you for referring JARED BRUNER to . Legally authenticated by JOANNA SPARKS 2020-12-31 17:42:01 Procedure Note Provider, Elliot [place] - 12/31/2020 [place] [address] Name: JARED BRUNER Exam Date: 12/31/2020 : 1970 Age 50 Gender: F Physician: SAMANTHA HARDING Facility: [facility] Facility HSV: Outpatient Exam: US BREAST LTD [...] 12/31/2020 Thank you for referring ZOHREHMIGUELITON to . Legally authenticated by JOANNA SPARKS 2020-12-31 17:42:01 us Samantha Harding APRN IMG BI PROCEDURES Final Res ult documented in this encounter Visit Diagnoses Not on filedocumented in this encounter Care Teams Security Escort Relationship Specialty Start Date End Date Samantha Harding APRN [address] [place] [phone] PCP - General 06/29/20 documented as of this encounter
--- OUTSIDE RECORDS SUMMARY | 2024-08-24 09:09 | XMS_ITS | Encounter Summary ---
Author Organization [facility] Address [address] [place] [address] Care Team Providers Care Pigment Pusher Name Role Phone Samantha Harding APRN Primary Care Provider [phone] Encounter Details Date Type Department Care Team (Late st Contact Info) Description 07/08/2023 Outside Procedure External Location [address] [place] [address] Samantha Harding APRN [address] [place] [address] Social History Tobacco Use Types Packs/Day Years [...] place to sleep or slept in a alf (including now)? No 06/30/2023 Utilities Answer Date [...] AM EDT Narrative 07/08/2023 3:33 [place] [address] Name: JARED BRUNER Exam Date: 07/08/2023 : 1970 Age 52 years Gender: F Physician: SAMANTHA HARDING Facility: [facility] Facility HSV: Outpatient Exam: DIEGO SCRN [...] Thank you for referring JARED BRUNER to [facility]. Legally authenticated by SHAMIKA CROWELL 2023-07-08 15:23:10 Procedure Note Provider, Generic [place] - 07/08/2023 [place] [address] Name: JARED BRUNER Exam Date: 07/08/2023 : 1970 Age 52 years Gender: F Physician: SAMANTHA HARDING Facility: [facility] Facility HSV: Outpatient Exam: DIEGO SCRN [...] 07/08/2023 Thank you for referring ANKITBENIGNOJARED to [facility]. Legally authenticated by SHAMIKA CROWELL 2023-07-08 15:23:10 [...] documented as of this encounter Care Teams Pigment Pusher Relationship Specialty Start Date End Date Samantha Harding APRN [address] [place] [phone] PCP - General 06/29/20 documented as of this encounter
--- OUTSIDE RECORDS SUMMARY | 2024-08-24 09:09 | XMS_ITS | Clinical Summary ---
Author Organization [facility] Address [facility] [place] [address] Care Team Providers Care Director Medical Surgical Name Role Phone Unavailable Primary Care Provider [...] therelease of HIV test results or diagnoses. [id number] Social History Tobacco Use Types Packs/Day Years Used Date Smoking Tobacco: Never Assessed Comments Unknown Sex and Gender Information Value Date Recorded Sex Assigned at Not on file Legal Sex Female 3:09 PM EST Gender Identity Not on file Sexual Orientation Not on file Plan of Treatment Not on file
== END 2024-08-24 23:59 | disposition home or self-care (01) ==
LOC: RAD 09:05
PROVIDERS: PCP Nurse Practitioner Family; Visit Provider Podiatrist
DX: L76.82 Other postprocedural complications of skin and subcutaneous tissue; R60.9 Edema, unspecified; Z98.890 Other specified postprocedural states; G89.18 Other acute postprocedural pain
CPT/HCPCS: 73630

== ENCOUNTER 2024-09-26 08:45 | Outpatient (CLI) | payer BC, SELFPAY ==
--- NOTE | 2024-09-26 08:47 | XR_ITS ---
FINAL REPORT CLINICAL HISTORY: post right foot bunionectomy COMPARISON: 08/24/2024 FINDINGS: RIGHT FOOT 3 views of the right foot were obtained. There is no fracture or definite bony destruction. There are extensive postoperative changes of the midfoot and first MTP joint. There is been interval removal of pins seen in the 2nd through 4th digits. Patient is status post resection of the 2nd through 5th metatarsal heads. There is sclerosis of the metatarsals which is likely postoperative. IMPRESSION: Evolving postoperative changes without fracture. Reviewed, Interpreted and Dictated by Eriberto Velasquez MD Transcribed by Suzan Bender Authenticated and . [facility]
--- OUTSIDE RECORDS SUMMARY | 2024-09-26 08:49 | XMS_ITS | Encounter Summary ---
Author Organization [facility] Address [address] [place] [address] Care Team Providers Care Mis Manager Name Role Phone Samantha Harding APRN Primary Care Provider [phone] Encounter Details Date Type Department Care Team ([facility] st Contact Info) Description 12/31/2020 Outside Procedure External Location [address] [place] [address] Samantha Harding APRN [address] [place] [phone] Social History Tobacco Use Types Packs/Day Years [...] PM EST Narrative 12/31/2020 5:58 [place] [address] Name: JARED BRUNER Exam Date: 12/31/2020 : 1970 Age 50 Gender: F Physician: SAMANTHA HARDING Facility: [facility] Facility HSV: Outpatient Exam: DIEGO DIAG [...] Thank you for referring JARED BRUNER to [facility]. Legally authenticated by JOANNA SPARKS 2020-12-31 17:47:30 Procedure Note Provider, Generic [place] - 12/31/2020 [place] [id number] Name: JARED BRUNER Exam Date: 12/31/2020 : 1970 Age 50 Gender: F Physician: SAMANTHA HARDING Facility: [facility] Facility HSV: Outpatient Exam: DIEGO DIAG [...] Thank you for referring JARED BRUNER to [facility]. Legally authenticated by JOANNA SPARKS 2020-12-31 17:47:30 Samantha Harding APRN IMG BI PROCEDURES Final Res ult documented in this encounter Visit Diagnoses Not on filedocumented in this encounter Care Teams Mis Manager Relationship Specialty Start Date End Date Samantha Harding APRN [address] [place] [phone] PCP - General 06/29/20 documented as of this encounter
--- OUTSIDE RECORDS SUMMARY | 2024-09-26 08:49 | XMS_ITS | Encounter Summary ---
Author Organization [facility] Address [address] [place] [address] Care Team Providers Care Motor And Controls Tester Name Role Phone Samantha Harding APRN Primary Care Provider [phone] Encounter Details Date Type Department Care Team (Late st Contact Info) Description 07/08/2023 Outside Procedure External Location [address] [place] [address] Samantha Harding APRN [address] [place] [address] Social History Tobacco Use Types [...] place to sleep or slept in a [facility] (including now)? No 06/30/2023 Utilities Answer Date [...] AM EDT Narrative 07/08/2023 3:33 [place] [address] Name: JARED BRUNER Exam Date: 07/08/2023 : 1970 Age 52 years Gender: F Physician: SAMANTHA HARDING Facility: [facility] Facility HSV: Outpatient Exam: DIEGO SCRN [...] Thank you for referring JARED BRUNER to [facility]. Legally authenticated by SHAMIKA CROWELL 2023-07-08 15:23:10 Procedure Note Provider, Generic [place] - 07/08/2023 [place] [address] Name: JARED BRUNER Exam Date: 07/08/2023 : 1970 Age 52 years Gender: F Physician: SAMANTHA HARDING Facility: [facility] Facility HSV: Outpatient Exam: DIEGO SCRN [...] 07/08/2023 Thank you for referring ANKITBENIGNOJARED to [facility]. Legally authenticated by SHAMIKA CROWELL 2023-07-08 [...] documented as of this encounter Care Teams Motor And Controls Tester Relationship Specialty Start Date End Date Samantha Harding APRN [address] [place] [phone] PCP - General 06/29/20 documented as of this encounter
--- OUTSIDE RECORDS SUMMARY | 2024-09-26 08:49 | XMS_ITS | Encounter Summary ---
Author Organization [facility] Address [address] [place] [address] Care Team Providers Care Administrative Services Specialist Name Role Phone Liya Pacheco APRN Primary Care Provider [phone] Reason for Visit * Reason Comments Med Refill Encounter Details Date Type Department Care Team (Late st Contact Info) Description 05/20/2023 Refill Family and Community Medicine [address] [place] [address] Liya Pacheco APRN [address] [place] [address] Social History Tobacco Use Types [...] documented as of this encounter Care Teams Administrative Services Specialist Relationship Specialty Start Date End Date Liya Pacheco APRN [address] [place] [address] PCP - General 06/29/20 documented as of this encounter
--- OUTSIDE RECORDS SUMMARY | 2024-09-26 08:49 | XMS_ITS | Encounter Summary ---
Author Organization [facility] Address [address] [place] [address] Care Team Providers Care High Frequency Mill Operator Name Role Phone Samantha Harding APRN Primary Care Provider [phone] Encounter Details Date Type Department Care Team (Late st Contact Info) Description 01/19/2023 Outside Procedure External Location [address] [place] [address] Samantha Harding APRN [address] [place] [address] Social History Tobacco Use Types Packs/Day Years [...] things Not at all 01/20/2023 9:19 AM Marleen Shelton Feeling down, depressed, or hopeless Not [...] AM EST Narrative 01/19/2023 12:24 [place] [address] Name: JARED BRUNER Exam Date: 01/19/2023 : 1970 Age 52 Gender: F Physician: SAMANTHA HARDING Facility: [facility] Facility HSV: Outpatient Exam: DIEGO DIAG MAMMO [...] Thank you for referring ANKITBENIGNO JARED to [facility]. Legally authenticated by POPE NYDIA Munoz 2023-01-19 12:09:46 Procedure Note Provider, Elliot [place] - 01/19/2023 [place] [address] Name: JARED BRUNER Exam Date: 01/19/2023 : 1970 Age 52 Gender: F Physician: SAMANTHA HARDING Facility: [facility] Facility HSV: Outpatient Exam: DIEGO DIAG MAMMO [...] Thank you for referring JARED BRUNER to [facility]. Legally authenticated by POPE NYDIA Munoz [...] documented as of this encounter Care Teams High Frequency Mill Operator Relationship Specialty Start Date End Date Samantha Harding APRN [address] [place] [address] PCP - General 06/29/20 documented as of this encounter
--- OUTSIDE RECORDS SUMMARY | 2024-09-26 08:49 | XMS_ITS | Encounter Summary ---
Author Organization [facility] Address [address] [place] [address] Care Team Providers Care Impersonator Character Name Role Phone Samantha Harding APRN Primary Care Provider [phone] Encounter Details Date Type Department Care Team (Late st Contact Info) Description 08/29/2021 Outside Procedure External Location [address] [place] [address] Samantha Harding APRN [address] [place] [address] Social History Tobacco Use Types Packs/Day Years [...] AM EDT Narrative 08/29/2021 11:07 AM EDT [address] [address] Name: JARED BRUNER Exam Date: 08/29/2021 : 1970 Age 50 Gender: F Physician: SAMANTHA HARDING [facility] [...] Thank you for referring JARED BRUNER to [facility]. Legally authenticated by POPE NYDIA Munoz 2021-08-29 10:56:49 Procedure Note Provider, Elliot [place] - 08/29/2021 [place] [address] Name: JARED BRUNER Exam Date: 08/29/2021 : 1970 Age 50 Gender: F Physician: SAMANTHA HARDING [facility] [...] Thank you for referring JARED BRUNER to [facility]. Legally authenticated by POPE NYDIA Munoz 2021-08-29 10:56:49 us Samantha Harding APRN IMG BI PROCEDURES Final Res ult documented in this encounter Visit Diagnoses Not on filedocumented in this encounter Care Teams Impersonator Character Relationship Specialty Start Date End Date Samantha Harding APRN [address] [place] [address] PCP - General 06/29/20 documented as of this encounter
--- OUTSIDE RECORDS SUMMARY | 2024-09-26 08:49 | XMS_ITS | Encounter Summary ---
Author Organization [facility] Address [address] [place] [address] Care Team Providers Care Mushroom Cutter Name Role Phone Samantha Harding APRN Primary Care Provider +[phone] Encounter Details Date Type Department Care Team ([facility] st Contact Info) Description 12/21/2020 Outside Procedure External Location [address] [place] [address] Samantha Harding APRN [address] [place] [address] Social History Tobacco Use Types Packs/Day Years [...] AM EDT Narrative 12/21/2020 7:21 [place] [address] Name: JARED BRUNER Exam Date: 12/21/2020 : 1970 Age 50 Gender: F Physician: SAMANTHA HARDING Facility: [facility] Facility HSV: Outpatient Exam: DIEGO SCRN [...] Thank you for referring JARED BRUNER to [facility]. Legally authenticated by MIRYAM MATUTE 2020-12-21 19:06:53 Procedure Note Provider, Generic [place] - 12/21/[address] [address] Name: JARED BRUNER Exam Date: 12/21/2020 : 1970 Age 50 Gender: F Physician: SAMANTHA HARDING Facility: [facility] Facility HSV: Outpatient Exam: DIEGO SCRN [...] 12/21/2020 Thank you for referring ZOHREHFAINAJARED to [facility]. Legally authenticated by MIRYAM MATUTE 2020-12-21 19:06:53 us Samantha Harding APRN IMG BI PROCEDURES Final Res ult documented in this encounter Visit Diagnoses Not on filedocumented in this encounter Care Teams Mushroom Cutter Relationship Specialty Start Date End Date Samantha Harding APRN [address] [place] [address] PCP - General 06/29/20 documented as of this encounter
--- OUTSIDE RECORDS SUMMARY | 2024-09-26 08:49 | XMS_ITS | Encounter Summary ---
Author Organization [facility] Address [address] [place] [address] Care Team Providers Care Law Firm Partner Name Role Phone Samantha Harding APRN Primary Care Provider [phone] Encounter Details Date Type Department Care Team (Late st Contact Info) Description 04/22/2022 Outside Procedure External Location [address] [place] [address] Samantha Harding APRN [address] [place] [address] Social History Tobacco Use Types Packs/Day Years [...] 1 Month) No 04/22/2022 11:06 AM Erum Shetlon 6. Suicidal Behavior (Lifetime) No 11:06 AM [...] AM EST Narrative 04/22/2022 10:57 [place] [address] Name: JARED BRUNER Exam Date: 04/22/2022 : 1970 Age 51 Gender: F Physician: SAMANTHA HARDING Facility: [facility] Facility HSV: Outpatient Exam: DIEGO [...] Services. Legally authenticated by POPE NYDIA Munoz 2022-04-22 10:46:45 Procedure Note Provider, [facility] - 04/22/2022 [place] [address] Name: JARED BRUNER Exam Date: 04/22/2022 : 1970 Age 51 Gender: F Physician: SAMANTHA HARDING Facility: [facility] Facility HSV: Outpatient Exam: DIEGO [...] Services. Legally authenticated by POPE NYDIA Munoz 2022-04-22 10:46:45 us Samantha Harding GLAZIER HELPER IMG BI PROCEDURES Final Res ult documented in this encounter Visit Diagnoses Not on filedocumented in this encounter Additional Health Concerns Assessment Noted Time A fall risk assessment has been complete d for the patient 04/22/2022 11:06 AM EST A Body Mass Index follow-up plan has been documented for the patient 04/22/2022 12:30 PM EST documented as of this encounter Care Teams Law Firm Partner Relationship Specialty Start Date End Date Samantha Harding APRN [address] [place] [address] PCP - General 06/29/20 documented as of this encounter
--- OUTSIDE RECORDS SUMMARY | 2024-09-26 08:49 | XMS_ITS | Clinical Summary ---
Author Organization [facility] Address [address] [place] [address] Care Team Providers Care Vegetable Inspector Name Role Phone Samantha Harding APRN Primary Care Provider [phone] Allergies No known active allergies Medications methylphenidate [...] a day. 4 Active ergocalciferol 1.25 MG (22749 UT) capsule Take 1 capsule (50,000 Units) by mouth 1 (one) time per week. 4 Active HYDROcodone-aceta minophen ([place]) 7.5-325 MG tablet Take 1 tablet (7.5 [...] 05/13/2014 Immunizations Immunization Administration Dates Next Due Agent Partner COVID-19 Vaccine (Blue Cap) 18+ 04/28/19 21 [...] place to sleep or slept in a group home (including now)? No 09/09/2023 Utilities Answer Date [...] SDOH Screenings 1970 Diabetes: Dental Exam 09/03/1981 [facility]- SDOH Screenings 09/03/1989 [facility]-Adult SDOH Screenings 09/03/1989 [facility]-Hepatitis B Vaccines (1 of 3 - 19+ 3-dose series) 09/03/1990 [facility]-Pneumococcal Vaccine: 50+ Years (1 of 2 - PCV) 09/03/1990 CT Colonography 09/03/2016 Colonoscopy 09/03/2016 FIT-DNA 09/03/2016 FIT 09/03/2016 FOBT 09/03/2016 Sigmoidoscopy 09/03/2016 [facility]-Colorectal Cancer Screening 09/03/2016 [facility]-Diabetes: Hemoglobin A1C 10/20/202208/2022, 04/02/2021, 02/28/2021, Additional history exists [facility]-Zoster Vaccines (2 of 2) 03/17/2023 01/20/2023 [id number] Vaccine (2023- season) 2023 12/31/2022, 04/27/2020 [facility]-Pap Smear 12/13/2023 12/12/2020, 0 08/2017, 01/24/1992 [facility]-Depression Screening 09/08/2024 09/09/2023 [facility]-Influenza Vaccine (#1) 2024 [facility]-Breast Cancer Screening 07/07/2025 07/08/2023, 1 02/21/2020 [facility]-Cervical Cancer Screening 12/12/2025 [facility]-HPV/Cotest 12/12/2025 12/12/2020, 0 08/2017, 01/24/1992 [facility]-DTaP,Tdap,and Td Vaccines (2 - [...] AM EDT Narrative 07/08/2023 3:33 [place] [address] Name: JARED BRUNER Exam Date: 07/08/2023 : 1970 Age 52 years Gender: F Physician: SAMANTHA HARDING Facility: [facility] Facility HSV: Outpatient Exam: DIEGO [...] Thank you for referring JARED BRUNER to [facility]. Legally authenticated by SHAMIKA CROWELL 2023-07-08 15:23:10 Procedure Note Provider, [facility] - 07/08/2023 [place] [address] Name: JARED BRUNER Exam Date: 07/08/2023 : 1970 Age 52 years Gender: F Physician: SAMANTHA HARDING Facility: [facility] Facility HSV: Outpatient Exam: DIEGO [...] Thank you for referring JARED BRUNER to [facility]. Legally authenticated by SHAMIKA CROWELL 2023-07-08 15:23:10 us Samantha Harding CORN SHELLER IMG BI PROCEDURES Final Res ult * Hemoglobin A1c (04/22/2022 11:29 AM EST) Hemoglobin A1c 5.3 <5.7 % 04/22/2022 7:12 PM EST [facility] Blood Venous blood specimen / Unknown [...] Adults <6.0% Children and Adolescents <7.5% Source: [place] Of [place] Diabetes Association. Standards of medical care in diabetes,2017. Diabetes Care.2017:40 (suppl 1):S1-S135. HbA1c assay performed by an ion-exchange chromatography method that is certified traceable to the DCCT. us Samantha Harding APRN LAB BLOOD ORDERABLES Final Result [facility] [address] [place] [address] * Pap smear (12/12/2020 12:45 PM EDT) Case Report Cytology Case: [id number] Authorizing Provider: Samantha Harding APRN Collected: 12/12/2020 1245 Ordering Location: General acute hospital Received: 12/12/2020 [facility] Medicine First Screen: NAHOMI Trevino Specimen: ThinPrep Pap Test, Liquid-Based Cervical/Vaginal, CERVICAL/VAGINAL 12/18/2020 1:39 PM EDT [facility] Interpretation NEGATIVE FOR INTRAEPITHELIAL LESION OR MALIGNANCY 12/18/2020 1:39 PM EDT [facility] at 1339 EDT Specimen Adequacy Satisfactory for evaluation; endocervical/maldonado sformation zone component absent/insufficie nt. Slide scanned and imaged by [employer] [facility] with manual review of all selected crowell. 12/18/2020 1:39 PM EDT [facility] Cervical cytology is a screening [...] results is suggested (please call Microbiology at [phone] for results). 12/18/2020 1:39 PM EDT [facility] Menstrual Status Post-Menopausal 03/2020 1:39 PM EDT [facility] Contraceptive History Not Applicable 12/18/2020 1:39 PM EDT [facility] Last Menstrual Period 08/22/2019 12/18/2020 1:39 PM EDT [facility] Screening Type Routine Screen 2020 1:39 PM EDT [facility] High Risk? No 12/18/2020 1:39 PM EDT [facility] HPV Testing Requested? No HPV Testing Requested 12/18/2020 1:39 PM EDT [facility] Previous Cancer History No 12/18/2020 1:39 PM EDT [facility] Swab Vaginal and cervical cytologic material / Unknown Non-blood Collection / Unknown 12/12/2020 12:45 PM EDT 12/12/2020 12:45 PM EDT Samantha Harding CORN SHELL[facility] CYTOLOGY ORDERABLES Fin al Result Performing Organization Address City/State/[facility] Co de Phone Number [facility] [address] [place] [phone] from Last 3 Months or Most Recently Relevant to Health Maintenance Insurance [employer] Care Teams Vegetable Inspector Relationship Specialty Start Date End Date Samantha Harding, CORN SHELLER [address] [place] [address] PCP - General 06/29/20
--- OUTSIDE RECORDS SUMMARY | 2024-09-26 08:49 | XMS_ITS | Encounter Summary ---
Author Organization [facility] Address [address] [place] [address] Care Team Providers Care Youth Minister Name Role Phone Samantha Harding APRN Primary Care Provider +[phone] Encounter Details Date Type Department Care Team ([facility] st Contact Info) Description 12/31/2020 Outside Procedure External Location [address] [place] [address] Samantha Harding APRN [address] [place] [address] Social History Tobacco Use Types Packs/Day Years [...] PM EST Narrative 12/31/2020 5:54 [place] [address] Name: JARED BRUNER Exam Date: 12/31/2020 : 1970 Age 50 Gender: F Physician: SAMANTHA HARDING Facility: [facility] Facility HSV: Outpatient Exam: US [...] Thank you for referring JARED BRUNER to [facility]. Legally authenticated by JOANNA SPARKS 2020-12-31 17:42:01 Procedure Note Provider, Elliot [place] - 12/31/2020 [place] [address] Name: JARED BRUNER Exam Date: 12/31/2020 : 1970 Age 50 Gender: F Physician: SAMANTHA HARDING Facility: [facility] Facility HSV: Outpatient Exam: US [...] 12/31/2020 Thank you for referring ZOHREHMIGUELITON to [facility]. Legally authenticated by JOANNA SPARKS 2020-12-31 17:42:01 us Samantha Harding APRN IMG BI PROCEDURES Final Res ult documented in this encounter Visit Diagnoses Not on filedocumented in this encounter Care Teams Youth Minister Relationship Specialty Start Date End Date Samantha Harding APRN [address] [place] [phone] PCP - General 06/29/20 documented as of this encounter
--- OUTSIDE RECORDS SUMMARY | 2024-09-26 08:49 | XMS_ITS | Clinical Summary ---
Author Organization [facility] Address [facility] [place] [address] Care Team Providers Care Bulk Plant Supervisor Name Role Phone Unavailable Primary Care Provider [...] therelease of HIV test results or diagnoses. [id number] Social History Tobacco Use Types Packs/Day Years Used Date Smoking Tobacco: Never Assessed Comments Unknown Sex and Gender Information Value Date Recorded Sex Assigned at Not on file Legal Sex Female 3:09 PM EST Gender Identity Not on file Sexual Orientation Not on file Plan of Treatment Not on file
== END 2024-09-26 23:59 | disposition home or self-care (01) ==
LOC: RAD 08:46
PROVIDERS: PCP Nurse Practitioner Family; Visit Provider Podiatrist
DX: G89.18 Other acute postprocedural pain (principal); Z98.890 Other specified postprocedural states
CPT/HCPCS: 73630